=== PATIENT | male | born 1960 | race Caucasian/White ===

== ENCOUNTER 2019-10-27 10:16 | Observation (INO) | payer BC ==
[2019-10-27 11:24] LABS: BASO % 0.7 % (0-2.0); EOS % 3.1 % (0-4.5); HEMATOCRIT 42.6 % (35.4-49); HEMOGLOBIN 14.8 GM/dL (11.7-16.9); LYMPH % 25.5 % (8-40); MCH 30.2 pg (25.7-33.7); MCHC 34.7 g/dl (32.0-35.9); MEAN CELL VOLUME 87.3 fl (80-96); MEAN PLT VOLUME 8.5 fl (7.5-11.1); MONO % 9.4 % (3.8-10.2); NEUT % 61.3 % (42.8-82.8); PLATELET COUNT 153 K/MM3 (134-434); RBC 4.88 M/mm3 (4.00-5.60); RDW 13.5 % (11.9-15.9)
[2019-10-27 11:31] LABS: INR 1.02 (0.83-1.09)
[2019-10-27 11:33] LABS: ACTIVATED PTT 32.1 SECONDS (25.2-36.5)
[2019-10-27 11:58] LABS: ALBUMIN 3.8 g/dl (3.4-5.0); ALK PHOS 60 U/L (45-117); ANION GAP 7 MMOL/L (8-16); BILIRUBIN,TOTAL 0.9 mg/dL (0.2-1); BLOOD UREA NITROGEN 28.6 mg/dL (7-18); CALCIUM 9.4 mg/dL (8.5-10.1); CHLORIDE 106 mmol/L (98-107); CO2 27 mmol/L (21-32); CREATININE 1.5 mg/dL (0.55-1.3); GLUCOSE,RANDOM 213 mg/dL (74-106); POTASSIUM 4.1 mmol/L (3.5-5.1); SGOT/AST 21 U/L (15-37); SGPT/ALT 34 U/L (13-61); SODIUM 140 mmol/L (136-145); TOT PROT 6.8 g/dl (6.4-8.2)
--- NOTE | 2019-10-27 12:19 | PDOC ---
History of Present Illness - General Chief Complaint: PICC Line Insertion Stated Complaint: SENT BY PCP / ADMIT Time Seen by Provider: 10/27/19 11:18 History Source: Patient Exam Limitations: No Limitations - History of Present Illness Initial Comments: 59 yo male pmh of DM and current treatment for osteomyelitis of the right third toe presents to the ED for PICC line placement for outpatient antibiotics as per ID. Pt denies F/C/N/V, change in bowel or bladder habits, CP, SOB, abdominal pain, calf swelling/tenderness. Pt denies local change in pain, swelling, redness or drainage from the right third toe. Pt states that he was told by Podiatry not to remove current dressing placement. Will wait for ID evaluation and input before removing dressing. Past History - Medical History Allergies/Adverse Reactions: Allergies Allergy/AdvReac Type Severity Reaction Status Date / Time No Known Allergies Allergy Verified 10/27/19 10:31 Home Medications: Ambulatory Orders Atorvastatin Ca [Lipitor] 20 mg PO HS 10/16/19 Chlorthalidone 25 mg PO Q2D 10/16/19 Glipizide [Glucotrol -] 15 mg PO DAILY 10/16/19 Metformin HCl [Glucophage] 500 mg PO BID 10/16/19 Metoprolol Succinate [Toprol Xl] 200 mg PO DAILY 10/16/19 Omeprazole 20 mg PO Q2D 10/16/19 Telmisartan [Micardis] 80 mg PO DAILY 10/16/19 Ceftriaxone [Rocephin -] 1 gm IVPB DAILY vial 10/28/19 Glipizide [Glucotrol -] 15 mg PO DAILY@0700 tablet 10/28/19 Cardiac Disorders: Yes (Cardiomyopathy (HOCM)) COPD: No Diabetes: Yes HTN: Yes Hypercholesterolemia: Yes - Surgical History Orthopedic Surgery: Yes (Fracture ankle repair 10 yrs ago) - Immunization History Immunization Up to Date: Yes - Psycho-Social/Smoking History Smoking History: Never smoked Have you smoked in the past 12 months: No - Substance Abuse Hx (Audit-C & DAST Scrn) How often the patient has a drink containing alcohol: Never Score: In Men: 4 or > Positive; In Women: 3 or > Positive: 0 Screen Result (Pos requires Nsg. Audit-10AR): Negative In the last yr the pt used illegal drug/Rx for NonMed reason: No Score: Yes response is considered Positive: 0 Screen Result (Positive result requires Nsg. DAST-10): Negative Review of Systems - Review of Systems Constitutional: Yes: See HPI Respiratory: Yes: See HPI Cardiac (ROS): Yes: See HPI ABD/GI: Yes: See HPI : Yes: See HPI Musculoskeletal: Yes: See HPI Integumentary: Yes: See HPI Neurological: Yes: See HPI *Physical Exam - Vital Signs Last Vital Signs Temp Pulse Resp BP Pulse Ox 98.9 F 57 L 18 156/65 100 10/27/19 10:31 10/27/19 10:31 10/27/19 10:31 10/27/19 10:31 10/27/19 10:31 - Physical Exam General Appearance: Yes: Nourished, Appropriately Dressed. No: Apparent Distress HEENT: positive: EOMI Neck: positive: Supple Respiratory/Chest: positive: Lungs Clear, Normal Breath Sounds. negative: Acce ssory Muscle Use, Rapid RR, Crackles, Rales, Rhonchi, Stridor, Wheezing Cardiovascular: positive: Regular Rhythm, Regular Rate, S1, S2. negative: Edema, JVD, Murmur Vascular Pulses: Dorsalis-Pedis (R): 4+, Doralis-Pedis (L): 4+ Gastrointestinal/Abdominal: positive: Flat, Soft. negative: Pulsatile Mass, Distended, Guarding, Rebound, Tenderness Musculoskeletal: negative: CVA Tenderness Extremity: positive: Other (dressing in place over right foot, as per Podiatry and ID, do not remove and and admit for PICC line/antibiotics) Integumentary: positive: Dry, Warm. negative: Erythema, Swelling Neurologic: positive: Fully Oriented, Alert, Normal Mood/Affect, Normal Response, Motor Strength 5/5 ED Treatment Course - LABORATORY CBC & Chemistry Diagram: 10/28/19 07:15 10/28/19 07:15 - ADDITIONAL ORDERS Additional order review: Laboratory Results 10/27/19 10/27/19 11:10 11:10 PT with INR 12.00 INR 1.02 PTT (Actin FS) 32.1 Sodium 140 Potassium 4.1 Chloride 106 Carbon Dioxide 27 Anion Gap 7 L BUN 28.6 H Creatinine 1.5 H Est GFR (CKD-EPI)AfAm 57.82 Est GFR (CKD-EPI)NonAf 49.88 Random Glucose 213 H Calcium 9.4 Total Bilirubin 0.9 AST 21 ALT 34 Alkaline Phosphatase 60 C-Reactive Protein < 0.3 Total Protein 6.8 Albumin 3.8 10/27/19 11:10 RBC 4.88 MCV 87.3 MCHC 34.7 RDW 13.5 MPV 8.5 Neutrophils % 61.3 Lymphocytes % 25.5 Monocytes % 9.4 Eosinophils % 3.1 Basophils % 0.7 - RADIOLOGY Radiology Studies Ordered: Category Date Time Status PICC LINE INSERTION [RADS] Urgent Radiology 10/27/19 12:16 Ordered Medical Decision Making - Medical Decision Making 10/27/19 12:39 59 yo male pmh of DM and current treatment for osteomyelitis of the right third toe presents to the ED for PICC line placement for outpatient antibiotics as per ID. Pt denies F/C/N/V, change in bowel or bladder habits, CP, SOB, abdominal pain, calf swelling/tenderness. Pt denies local change in pain, swelling, redness or drainage from the right third toe. Pt states that he was told by Podiatry not to remove current dressing placement. Will wait for ID evaluation and input before removing dressing. Failed outpatient antibiotics Discussed case with Dr. Lockwood, states pt to be admitted for PICC line placement and antibiotics. Dr. Lockwood states Ceftriaxone 2 G once in the ED and will continue following Admission labs done and patient is accepted for inpatient PICC line placement and antibiotics Discharge - Discharge Information Problems reviewed: Yes Clinical Impression/Diagnosis: Osteomyelitis Qualifiers: Osteomyelitis type: unspecified type Osteomyelitis location: foot Laterality: r ight Qualified Code(s): M86.9 - Osteomyelitis, unspecified Condition: Good Disposition: HOME - Admission Yes - Follow up/Referral - Patient Discharge Instructions - Post Discharge Activity
--- NOTE | 2019-10-27 12:22 | PDOC ---
Attending Attestation - Resident Resident Name: Swapnil Keys - ED Attending Attestation I have performed the following: I have examined & evaluated the patient, The case was reviewed & discussed with the resident, I agree w/resident's findings & plan - HPI HPI: 10/27/19 12:19 59-year-old male with history of diabetes complicated by neuropathy presents with right third toe osteomyelitis. Patient had initial injury about 5 to 6 weeks ago with abrasion to the toe, progressed to ulceration about 3 weeks ago, treated now with 2 courses of amoxicillin (Augmentin?) With improvement of the redness and swelling, referred to wound clinic and now had MRI last week showing osteomyelitis. Referred for IV antibiotics and PICC line placement. No pain, states redness has slightly decreased after oral antibiotics, denies any fevers or chills. - Physicial Exam PE: 10/27/19 12:20 Afebrile, vital signs stable Well-appearing standing by stretcher, boot in place with right foot dressed Palpable pulses distally, no foot or leg redness or swelling. Patient declined removal of dressing at this time. - Medical Decision Making 10/27/19 12:20 59-year-old diabetic male with diagnosed osteomyelitis of right third toe, sent for PICC line placement and IV antibiotics. Labs sent and within normal limits, creatinine 1.5 We will discuss antibiotic initiation with Dr. Lockwood and initiate PICC line placement Admit Heart Score/ECG Review #1 ECG reviewed & interpreted by me at: 12:04 General ECG Interpretation: Sinus Rhythm, Normal Rate (55), Normal Intervals (qtc 388), No acute ischemic changes Discharge - Discharge Information Problems reviewed: Yes Clinical Impression/Diagnosis: Osteomyelitis Qualifiers: Osteomyelitis type: unspecified type Osteomyelitis location: foot Laterality: right Qualified Code(s): M86.9 - Osteomyelitis, unspecified Condition: Stable - Follow up/Referral Referrals: ON STAFF,NOT [Primary Care Provider] - - Patient Discharge Instructions - Post Discharge Activity
[2019-10-27] MEDS ORDERED: CEFTRIAXONE 2 GM-D5W BAG 2 GM/50 ML BAG IVPB ONE (12:43)
[2019-10-27] MEDS ORDERED: CEFTRIAXONE 2 GM/100 ML BAG IVPB ONE (12:50)
[2019-10-27 13:10] LABS: ERYTHROCYTE SEDIMENTATION RATE 5 mm/hr (0-20)
--- NOTE | 2019-10-27 13:55 | CON.ID ---
Consult Consult Specialty:: infectious diseases Referred by:: - Smoking History Smoking history: Never smoked Have you smoked in the past 12 months: No Home Medications - Allergies Allergies/Adverse Reactions: Allergies Allergy/AdvReac Type Severity Reaction Status Date / Time No Known Allergies Allergy Verified 10/27/19 10:31 - Home Medications Home Medications: Ambulatory Orders Atorvastatin Ca [Lipitor] 20 mg PO HS 10/16/19 Chlorthalidone 25 mg PO Q2D 10/16/19 Glipizide [Glucotrol -] 15 mg PO DAILY 10/16/19 Metformin HCl [Glucophage] 500 mg PO BID 10/16/19 Metoprolol Succinate [Toprol Xl] 200 mg PO DAILY 10/16/19 Omeprazole 20 mg PO Q2D 10/16/19 Telmisartan [Micardis] 80 mg PO DAILY 10/16/19 Physical Exam Vital Signs: Vital Signs Temperature 98.9 F 10/27/19 10:31 Pulse Rate 57 L 10/27/19 10:31 Respiratory Rate 18 10/27/19 13:29 Blood Pressure 156/65 10/27/19 10:31 O2 Sat by Pulse Oximetry (%) 100 10/27/19 13:29 Labs: CBC, BMP 10/27/19 11:10 10/27/19 11:10
--- NOTE | 2019-10-27 17:48 | EKG ---
Test Reason : Blood Pressure : / mmHG Vent. Rate : 055 BPM Atrial Rate : 055 BPM P-R Int : 134 ms QRS Dur : 096 ms QT Int : 406 ms P-R-T Axes : 020 039 042 degrees QTc Int : 388 ms SINUS BRADYCARDIA OTHERWISE NORMAL ECG NO PREVIOUS ECGS AVAILABLE Confirmed by TRAVIS CARRERO MD ([id number]) on 10/27/2019 5:48:31 PM Referred By: Confirmed By:TRAVIS CARRERO MD
--- NOTE | 2019-10-27 23:23 | HP ---
Admitting History and Physical - Admission History of Present Illness: Pt is a 59 y/o male with PMH significant for HTN, GERD, HLD and diabetes complicated by neuropathy. Pt now presents to ER with right third toe osteo myelitis. Patient had initial injury about 5 to 6 weeks ago(cut foot in a swimming pool) with abrasion to the toe, progressed to ulceration about 3 weeks ago, treated now with 2 courses of antibiotic with some improvement of the redness and swelling, referred to wound clinic and now had MRI last week showing osteomyelitis. Referred for IV antibiotics and PICC line placement. - Past Medical History Cardiovascular: Yes: HTN, Hyperlipdemia Gastrointestinal: Yes: GERD Endocrine: Yes: Diabetes Mellitus - Smoking History Smoking history: Never smoked Have you smoked in the past 12 months: No Home Medications - Allergies Allergies/Adverse Reactions: Allergies Allergy/AdvReac Type Severity Reaction Status Date / Time No Known Allergies Allergy Verified 10/27/19 10:31 - Home Medications Home Medications: Ambulatory Orders Atorvastatin Ca [Lipitor] 20 mg PO HS 10/16/19 Chlorthalidone 25 mg PO Q2D 10/16/19 Glipizide [Glucotrol -] 15 mg PO DAILY 10/16/19 Metformin HCl [Glucophage] 500 mg PO BID 10/16/19 Metoprolol Succinate [Toprol Xl] 200 mg PO DAILY 10/16/19 Omeprazole 20 mg PO Q2D 10/16/19 Telmisartan [Micardis] 80 mg PO DAILY 10/16/19 Family Medical History Family History: Unremarkable Review of Systems - Review of Systems Constitutional: reports: No Symptoms Eyes: reports: No Symptoms HENT: reports: No Symptoms Neck: reports: No Symptoms Cardiovascular: reports: No Symptoms Respiratory: reports: No Symptoms Gastrointestinal: reports: No Symptoms Genitourinary: reports: No Symptoms Physical Examination Vital Signs: Vital Signs Temperature 98.9 F 10/27/19 10:31 Pulse Rate 72 10/27/19 15:54 Respiratory Rate 18 10/27/19 13:29 Blood Pressure 146/97 10/27/19 15:54 O2 Sat by Pulse Oximetry (%) 97 10/27/19 15:54 Constitutional: Yes: Well Nourished Eyes: Yes: WNL HENT: Yes: WNL Neck: Yes: WNL, Supple Cardiovascular: Yes: WNL, Regular Rate and Rhythm Respiratory: Yes: WNL, Regular, CTA Bilaterally Gastrointestinal: Yes: WNL, Normal Bowel Sounds, Soft Extremities: Yes: Other (Rt 3rd toe in dressing wc is dry) Edema: No Neurological: Yes: WNL, Alert, Oriented ...Motor Strength: WNL Labs: CBC, BMP 10/27/19 11:10 10/27/19 11:10 Problem List - Problems (1) Osteomyelitis Assessment/Plan: Cont IV antibxs ID/podiatry consult Will need PIC line Code(s): M86.9 - OSTEOMYELITIS, UNSPECIFIED Qualifiers: Osteomyelitis type: unspecified type Osteomyelitis location: foot Laterality: right Qualified Code(s): M86.9 - Osteomyelitis, unspecified (2) Diabetes Assessment/Plan: Cont glipizide/metformin Cont sliding scale w/ coverage Check HgA1c Code(s): E11.9 - TYPE 2 DIABETES MELLITUS WITHOUT COMPLICATIONS (3) ARF (acute renal failure) Assessment/Plan: Monitor BUN/creatinine Code(s): N17.9 - ACUTE KIDNEY FAILURE, UNSPECIFIED (4) HTN (hypertension) Assessment/Plan: BP stable Cont metoprolol Code(s): I10 - ESSENTIAL (PRIMARY) HYPERTENSION (5) HLD (hyperlipidemia) Assessment/Plan: Cont lipitor Code(s): E78.5 - HYPERLIPIDEMIA, UNSPECIFIED (6) GERD (gastroesophageal reflux disease) Assessment/Plan: Protonix Code(s): K21.9 - GASTRO-ESOPHAGEAL REFLUX DISEASE WITHOUT ESOPHAGITIS
[2019-10-28] MEDS: metFORMIN HCL 500 MG TABLET (FP) PO SCH ×2 (00:16→06:43)
[2019-10-28 03:44] VITALS: BMI 33.4
[2019-10-28] MEDS: INSULIN SLIDING SCALE (NOVOLOG) 1 VIAL SQ SCH ×2 (06:41→12:16)
[2019-10-28] MEDS ORDERED: GLIPIZIDE PO SCH (07:00)
[2019-10-28] MEDS ORDERED: PT OWN MED DRAWER 7, Y5N ONE (07:36)
[2019-10-28 08:20] LABS: BASO % 0.7 % (0-2.0); EOS % 2.9 % (0-4.5); HEMATOCRIT 43.4 % (35.4-49); HEMOGLOBIN 14.9 GM/dL (11.7-16.9); LYMPH % 31.7 % (8-40); MCH 30.1 pg (25.7-33.7); MCHC 34.3 g/dl (32.0-35.9); MEAN CELL VOLUME 87.8 fl (80-96); MEAN PLT VOLUME 8.6 fl (7.5-11.1); NEUT % 54.7 % (42.8-82.8); PLATELET COUNT 155 K/MM3 (134-434); RBC 4.94 M/mm3 (4.00-5.60); RDW 13.3 % (11.9-15.9); WHITE BLOOD COUNT 9.4 K/mm3 (4.0-10.0)
[2019-10-28 08:35] LABS: ALBUMIN 3.7 g/dl (3.4-5.0); BILIRUBIN,TOTAL 1.1 mg/dL (0.2-1); BLOOD UREA NITROGEN 20.4 mg/dL (7-18); CALCIUM 9.5 mg/dL (8.5-10.1); CREATININE 1.2 mg/dL (0.55-1.3); POTASSIUM 3.7 mmol/L (3.5-5.1); TOT PROT 6.5 g/dl (6.4-8.2)
[2019-10-28] MEDS ORDERED: CEFTRIAXONE 1 GM in DEXTROSE 5%-WATER - 50 ML IVPB SCH (10:00)
[2019-10-28] MEDS ORDERED: HEPARIN NA (PORCINE) 5,000 UNITS/ML 1ML VIAL SQ SCH (10:00)
[2019-10-28] MEDS ORDERED: glipiZIDE 10 MG TABLET (FP) PO SCH (10:00)
[2019-10-28] MEDS ORDERED: cefTRIAXone SODIUM 1 GM VIAL ONE (10:10)
[2019-10-28] MEDS ORDERED: DEXTROSE 5%-WATER - 50 ML IVPB ONE (10:10)
--- NOTE | 2019-10-28 13:04 | PN ---
Progress Note, Physician History of Present Illness: stable no new issues wound looks good - Current Medication List Current Medications: Active Medications Atorvastatin Calcium (Lipitor -) 20 mg PO HS [facility] Chlorthalidone (Hygroton -) 25 mg PO Q2D [facility] Glipizide 10 mg/ Glipizide 5 (mg) 15 mg PO DAILY@0700 [facility] Last Admin: 10/28/19 06:44 Dose: 15 mg Documented by: Heparin Sodium (Porcine) (Heparin -) 5,000 unit SQ BID [facility] Last Admin: 10/28/19 10:33 Dose: Not Given Documented by: Ceftriaxone Sodium 1 gm/ (Dextrose) 50 mls @ 200 mls/hr IVPB DAILY [facility]; Protocol Last Admin: 10/28/19 10:34 Dose: 200 mls/hr Documented by: Insulin Aspart (Novolog Vial Sliding Scale -) 1 vial SQ ACHS [facility]; Protocol Last Admin: 10/28/19 12:16 Dose: Not Given Documented by: Metformin HCl (Glucophage -) 500 mg PO BIDAC [facility] Last Admin: 10/28/19 06:43 Dose: 500 mg Documented by: Metoprolol Succinate (Toprol Xl -) 200 mg PO DAILY [facility] Last Admin: 10/28/19 10:34 Dose: 200 mg Documented by: - Objective Vital Signs: Vital Signs Temperature 97.6 F 10/28/19 06:00 Pulse Rate 52 L 10/28/19 06:00 Respiratory Rate 16 10/28/19 06:00 Blood Pressure 136/90 10/28/19 06:00 O2 Sat by Pulse Oximetry (%) 100 10/28/19 06:00 Constitutional: Yes: No Distress, Calm Cardiovascular: Yes: S1, S2 Respiratory: Yes: Regular, CTA Bilaterally Gastrointestinal: Yes: Normal Bowel Sounds, Soft Musculoskeletal: Yes: WNL Extremities: Yes: Other Wound/Incision: Yes: Dressing Dry and Intact Neurological: Yes: Alert, Oriented Psychiatric: Yes: Alert, Oriented Labs: CBC, BMP 10/28/19 07:15 10/28/19 07:15 INR, PTT INR 1.02 (0.83-1.09) 10/27/19 11:10
[2019-10-28 15:40] VITALS: BP 138/88; PULSE 63; TEMP 98.7
[2019-10-28] MEDS ORDERED: ATORVASTATIN CA 20 MG TABLET (FP) PO SCH (22:00)
[2019-10-29] MEDS ORDERED: CHLORTHALIDONE 25 MG TABLET PO SCH (10:00)
--- NOTE | 2019-11-20 22:12 | DS ---
Physical Examination Vital Signs: Vital Signs Temperature 98.7 F 10/28/19 15:37 Pulse Rate 63 10/28/19 15:37 Respiratory Rate 20 10/28/19 15:37 Blood Pressure 138/88 10/28/19 15:37 O2 Sat by Pulse Oximetry (%) 97 10/28/19 15:37 Labs: CBC, BMP 10/28/19 07:15 10/28/19 07:15 Discharge Summary Problems reviewed: Yes Reason For Visit: OSTEOMYELITIS Osteomyelitis Diabetes HTN HLD Neuropathy Hospital Course: Pt is a 59 y/o male with PMH significant for HTN, GERD, HLD and diabetes complicated by neuropathy. Pt now presents to ER with right third toe osteomyelitis. Patient had initial injury about 5 to 6 weeks ago(cut foot in a swimming pool) with abrasion to the toe, progressed to ulceration about 3 weeks ago, treated now with 2 courses of antibiotic with some improvement of the redness and swelling, referred to wound clinic and now had MRI last week showing osteomyelitis. Pt was seen by ID and started on IV antibxs. Pt subsequently got PICC line and was discharged home on IV antibxs and to follow up with wound care. Condition: Good - Instructions Diet, Activity, Other Instructions: 2 gram sodium and diabetic diet Follow up with Dr Rosas and Dr Roro Roberts [phone] Referrals: ON STAFF,NOT [Primary Care Provider] - Disposition: HOME - Home Medications Comprehensive Discharge Medication List: Ambulatory Orders Atorvastatin Ca [Lipitor] 20 mg PO HS 10/16/19 Chlorthalidone 25 mg PO Q2D 10/16/19 Metformin HCl [Glucophage] 500 mg PO BID 10/16/19 Metoprolol Succinate [Toprol Xl] 200 mg PO DAILY 10/16/19 Omeprazole 20 mg PO Q2D 10/16/19 Telmisartan [Micardis] 80 mg PO DAILY 10/16/19 Ceftriaxone [Rocephin -] 1 gm IVPB DAILY vial 10/28/19 Glipizide [Glucotrol -] 15 mg PO DAILY@0700 tablet 10/28/19
== END 2019-10-28 17:30 | disposition home or self-care (01) ==
LOC: SUPCPDRO 10:16 → JER 10:16 → UNDOADMOB 13:04 → JERBED 13:04 → J5S 20:44 → OBSVTOIN 23:25 → INTOOBSV 23:25 → JERBED 10-28 13:47 → J5S 10-28 13:47
PROVIDERS: ADMIT Internal Medicine; ATTEND Internal Medicine
PROC: 3E03329 Introduction of Other Anti-infective into Peripheral Vein, Percutaneous Approach (ICD-10-PCS; principal; 2019-10-28)
PROC: 3E043KZ Introduction of Other Diagnostic Substance into Central Vein, Percutaneous Approach (ICD-10-PCS; 2019-10-28)
PROC: 02HV33Z Insertion of Infusion Device into Superior Vena Cava, Percutaneous Approach (ICD-10-PCS; 2019-10-28)
PROC: B548ZZA Ultrasonography of Superior Vena Cava, Guidance (ICD-10-PCS; 2019-10-28)
DX: M86.9 Osteomyelitis, unspecified (principal); E66.01 Morbid (severe) obesity due to excess calories; Z68.33 Body mass index [BMI] 33.0-33.9, adult; I10 Essential (primary) hypertension; E78.00 Pure hypercholesterolemia, unspecified; I42.9 Cardiomyopathy, unspecified; K21.9 Gastro-esophageal reflux disease without esophagitis; E11.40 Type 2 diabetes mellitus with diabetic neuropathy, unspecified; Z79.84 Long term (current) use of oral hypoglycemic drugs; N17.9 Acute kidney failure, unspecified
CPT/HCPCS: 36415; 36558; 77001-TC-FY; 80053; 82962; 83036; 85025; 85610; 85651; 85730; 86140; 86850; 86900; 86901; 93005; 93010; 99285-25; C1751; G0378; U0003

== ENCOUNTER 2019-10-31 11:12 | Day surgery (SDC) | payer BC ==
[2019-10-31] MEDS ORDERED: CEFTRIAXONE 2 GM in DEXTROSE 5%-WATER 100 ML IVPB ONE (11:45)
[2019-10-31] MEDS ORDERED: DEXTROSE 5%-WATER 100 ML IVPB ONE (11:48)
[2019-10-31 13:42] VITALS: BP 147/78; PULSE 65; TEMP 98.1
== END 2019-10-31 16:07 | disposition home or self-care (01) ==
LOC: JINFUSION 11:12 → J7W 11:12 → JINFUSION 16:07
PROVIDERS: ATTEND Internal Medicine Infectious Disease
DX: E11.69 Type 2 diabetes mellitus with other specified complication (principal); M86.9 Osteomyelitis, unspecified; Z79.84 Long term (current) use of oral hypoglycemic drugs; I10 Essential (primary) hypertension; E78.5 Hyperlipidemia, unspecified; N17.9 Acute kidney failure, unspecified
CPT/HCPCS: 96365

== ENCOUNTER 2019-11-01 10:44 | Day surgery (SDC) | payer BC ==
[~2019-11-01 10:44] MED LIST: CEFTRIAXONE 2 GM in DEXTROSE 5%-WATER 100 ML IVPB ONE
[2019-11-01] MEDS ORDERED: DEXTROSE 5%-WATER 100 ML IVPB ONE (11:17)
[2019-11-01 12:21] VITALS: BP 138/88; PULSE 52; TEMP 98.3
== END 2019-11-01 12:22 | disposition home or self-care (01) ==
LOC: JINFUSION 10:44 → J7W 10:45 → JINFUSION 12:22
PROVIDERS: ATTEND Internal Medicine Infectious Disease
DX: E11.69 Type 2 diabetes mellitus with other specified complication (principal); M86.9 Osteomyelitis, unspecified; Z79.84 Long term (current) use of oral hypoglycemic drugs; I10 Essential (primary) hypertension; E78.5 Hyperlipidemia, unspecified; N17.9 Acute kidney failure, unspecified
CPT/HCPCS: 96365

== ENCOUNTER 2019-11-02 09:27 | Day surgery (SDC) | payer BC ==
[2019-11-02] MEDS ORDERED: CEFTRIAXONE 2 GM in DEXTROSE 5%-WATER 100 ML IVPB ONE (09:45)
[2019-11-02] MEDS ORDERED: DEXTROSE 5%-WATER 100 ML IVPB ONE (09:49)
[2019-11-02 10:18] VITALS: TEMP 98.1
[2019-11-02 18:24] VITALS: BP 126/75; PULSE 70
== END 2019-11-02 11:30 | disposition home or self-care (01) ==
LOC: JINFUSION 09:27 → J7W 09:28 → JINFUSION 11:30
PROVIDERS: ATTEND Internal Medicine Infectious Disease
DX: E11.69 Type 2 diabetes mellitus with other specified complication (principal); M86.9 Osteomyelitis, unspecified; Z79.84 Long term (current) use of oral hypoglycemic drugs; I10 Essential (primary) hypertension; E78.5 Hyperlipidemia, unspecified; N17.9 Acute kidney failure, unspecified
CPT/HCPCS: 96365

== ENCOUNTER 2019-11-03 10:46 | Day surgery (SDC) | payer BC ==
[2019-11-03] MEDS ORDERED: CEFTRIAXONE 2 GM in DEXTROSE 5%-WATER 100 ML IVPB ONE (11:00)
[2019-11-03] MEDS ORDERED: DEXTROSE 5%-WATER 100 ML IVPB ONE (11:16)
[2019-11-03 11:28] VITALS: BP 138/84; PULSE 55; TEMP 98.9
== END 2019-11-03 12:13 | disposition home or self-care (01) ==
LOC: JINFUSION 10:46 → J7W 10:47 → JINFUSION 12:13
PROVIDERS: ATTEND Internal Medicine Infectious Disease
DX: E11.69 Type 2 diabetes mellitus with other specified complication (principal); M86.9 Osteomyelitis, unspecified; Z79.84 Long term (current) use of oral hypoglycemic drugs; I10 Essential (primary) hypertension; E78.5 Hyperlipidemia, unspecified; N17.9 Acute kidney failure, unspecified
CPT/HCPCS: 96365

== ENCOUNTER 2019-11-04 10:29 | Day surgery (SDC) | payer BC ==
[2019-11-04] MEDS ORDERED: CEFTRIAXONE 2 GM in DEXTROSE 5%-WATER 100 ML IVPB ONE (10:45)
[2019-11-04] MEDS ORDERED: DEXTROSE 5%-WATER 100 ML IVPB ONE (11:02)
[2019-11-04 11:14] VITALS: BP 137/91; PULSE 60; TEMP 98.3
[2019-11-04 11:35] LABS: HEMATOCRIT 43.7 % (35.4-49); MCH 30.2 pg (25.7-33.7); MCHC 34.2 g/dl (32.0-35.9); MEAN CELL VOLUME 88.3 fl (80-96); MEAN PLT VOLUME 8.7 fl (7.5-11.1); PLATELET COUNT 156 K/MM3 (134-434); RBC 4.95 M/mm3 (4.00-5.60); RDW 13.6 % (11.9-15.9); WHITE BLOOD COUNT 8.9 K/mm3 (4.0-10.0)
[2019-11-04 11:54] LABS: ANION GAP 6 MMOL/L (8-16); BLOOD UREA NITROGEN 28.4 mg/dL (7-18); CALCIUM 9.1 mg/dL (8.5-10.1); CHLORIDE 109 mmol/L (98-107); CO2 26 mmol/L (21-32); CREATININE 1.4 mg/dL (0.55-1.3); GLUCOSE,RANDOM 170 mg/dL (74-106); POTASSIUM 4.2 mmol/L (3.5-5.1); SODIUM 141 mmol/L (136-145)
[2019-11-04 13:50] LABS: ERYTHROCYTE SEDIMENTATION RATE 5 mm/hr (0-20)
== END 2019-11-04 13:54 | disposition home or self-care (01) ==
LOC: JINFUSION 10:29 → J7W 10:30 → JINFUSION 13:54
PROVIDERS: ATTEND Internal Medicine Infectious Disease
PROC: 3E033GC Introduction of Other Therapeutic Substance into Peripheral Vein, Percutaneous Approach (ICD-10-PCS; principal; 2019-11-04)
DX: E11.69 Type 2 diabetes mellitus with other specified complication (principal); M86.9 Osteomyelitis, unspecified; Z79.84 Long term (current) use of oral hypoglycemic drugs; I10 Essential (primary) hypertension; N17.9 Acute kidney failure, unspecified
CPT/HCPCS: 36415; 80048; 85027; 85651; 86140; 96365

== ENCOUNTER 2019-11-05 07:46 | Day surgery (SDC) | payer BC ==
[2019-11-05] MEDS ORDERED: CEFTRIAXONE 2 GM in DEXTROSE 5%-WATER 100 ML IVPB ONE (09:15)
[2019-11-05] MEDS ORDERED: DEXTROSE 5%-WATER 100 ML IVPB ONE (10:51)
[2019-11-05 16:35] VITALS: BP 150/86; PULSE 49; TEMP 98.3
== END 2019-11-05 11:45 | disposition home or self-care (01) ==
LOC: J7W 07:46 → JINFUSION 07:46
PROVIDERS: ATTEND Internal Medicine Infectious Disease
DX: E11.69 Type 2 diabetes mellitus with other specified complication (principal); M86.9 Osteomyelitis, unspecified; Z79.84 Long term (current) use of oral hypoglycemic drugs; I10 Essential (primary) hypertension
CPT/HCPCS: 96365

== ENCOUNTER 2019-11-06 06:22 | Day surgery (SDC) | payer BC ==
[2019-11-06] MEDS ORDERED: CEFTRIAXONE 2 GM in DEXTROSE 5%-WATER 100 ML IVPB ONE (10:30)
[2019-11-06] MEDS ORDERED: DEXTROSE 5%-WATER 100 ML IVPB ONE (10:56)
[2019-11-06 12:12] VITALS: BP 149/51; PULSE 54; TEMP 98.9
== END 2019-11-06 12:13 | disposition home or self-care (01) ==
LOC: JINFUSION 06:22 → J7W 09:59 → JINFUSION 12:13
PROVIDERS: ATTEND Internal Medicine Infectious Disease
DX: E11.69 Type 2 diabetes mellitus with other specified complication (principal); M86.9 Osteomyelitis, unspecified; Z79.84 Long term (current) use of oral hypoglycemic drugs; I10 Essential (primary) hypertension; E11.621 Type 2 diabetes mellitus with foot ulcer; L97.512 Non-pressure chronic ulcer of other part of right foot with fat layer exposed; E78.00 Pure hypercholesterolemia, unspecified
CPT/HCPCS: 96365; 97597

== ENCOUNTER 2019-11-07 06:38 | Day surgery (SDC) | payer BC ==
[2019-11-07] MEDS ORDERED: CEFTRIAXONE 2 GM in DEXTROSE 5%-WATER 100 ML IVPB ONE (11:00)
[2019-11-07] MEDS ORDERED: DEXTROSE 5%-WATER 100 ML IVPB ONE (11:09)
[2019-11-07 11:21] VITALS: BP 138/91; PULSE 56; TEMP 99
== END 2019-11-07 12:15 | disposition home or self-care (01) ==
LOC: JINFUSION 06:38 → J7W 10:53 → JINFUSION 12:15
PROVIDERS: ATTEND Internal Medicine Infectious Disease
DX: E11.69 Type 2 diabetes mellitus with other specified complication (principal); M86.9 Osteomyelitis, unspecified; Z79.84 Long term (current) use of oral hypoglycemic drugs; I10 Essential (primary) hypertension
CPT/HCPCS: 96365

== ENCOUNTER 2019-11-08 07:14 | Day surgery (SDC) | payer BC ==
[2019-11-08] MEDS ORDERED: CEFTRIAXONE 2 GM in DEXTROSE 5%-WATER 100 ML IVPB ONE (13:00)
[2019-11-08] MEDS ORDERED: DEXTROSE 5%-WATER 100 ML IVPB ONE (13:03)
[2019-11-08 13:12] VITALS: BP 145/88; PULSE 57; TEMP 97.6
== END 2019-11-08 13:55 | disposition home or self-care (01) ==
LOC: JINFUSION 07:14 → J7W 12:46 → JINFUSION 13:55
PROVIDERS: ATTEND Internal Medicine Infectious Disease
DX: E11.69 Type 2 diabetes mellitus with other specified complication (principal); M86.9 Osteomyelitis, unspecified; Z79.84 Long term (current) use of oral hypoglycemic drugs; I10 Essential (primary) hypertension
CPT/HCPCS: 96365

== ENCOUNTER 2019-11-09 11:55 | Day surgery (SDC) | payer BC ==
[2019-11-09] MEDS ORDERED: cefTRIAXone SODIUM 1 GM VIAL ONE (12:28)
[2019-11-09] MEDS ORDERED: DEXTROSE 5%-WATER 100 ML IVPB ONE (12:28)
[2019-11-09] MEDS ORDERED: CEFTRIAXONE 1 GM in DEXTROSE 5%-WATER 100 ML IVPB ONE (12:30)
[2019-11-09 12:43] VITALS: BP 148/90; PULSE 53; TEMP 98.3
== END 2019-11-09 13:28 | disposition home or self-care (01) ==
LOC: JINFUSION 11:55 → J7W 11:55 → JINFUSION 13:28
PROVIDERS: ATTEND Internal Medicine Infectious Disease
DX: E11.69 Type 2 diabetes mellitus with other specified complication (principal); M86.9 Osteomyelitis, unspecified; Z79.84 Long term (current) use of oral hypoglycemic drugs; I10 Essential (primary) hypertension
CPT/HCPCS: 96365

== ENCOUNTER 2019-11-10 05:58 | Day surgery (SDC) | payer BC ==
[2019-11-10] MEDS ORDERED: DEXTROSE 5%-WATER 100 ML IVPB ONE (10:58)
[2019-11-10] MEDS ORDERED: CEFTRIAXONE 2 GM in DEXTROSE 5%-WATER 100 ML IVPB ONE (11:00)
[2019-11-10 11:06] VITALS: BP 145/89; PULSE 58; TEMP 97.9
== END 2019-11-10 11:40 | disposition home or self-care (01) ==
LOC: JINFUSION 05:58 → J7W 10:46 → JINFUSION 11:40
PROVIDERS: ATTEND Internal Medicine Infectious Disease
DX: E13.69 Other specified diabetes mellitus with other specified complication (principal); M86.8X7 Other osteomyelitis, ankle and foot; E13.22 Other specified diabetes mellitus with diabetic chronic kidney disease; I12.9 Hypertensive chronic kidney disease with stage 1 through stage 4 chronic kidney disease, or unspecified chronic kidney disease; N18.9 Chronic kidney disease, unspecified; N17.9 Acute kidney failure, unspecified; Z79.84 Long term (current) use of oral hypoglycemic drugs
CPT/HCPCS: 96365

== ENCOUNTER 2019-11-11 05:56 | Day surgery (SDC) | payer BC ==
--- OUTSIDE RECORDS SUMMARY | 2019-11-11 05:59 | XMS ---
:1960 Author [facility] Support Name Relationship Address Phone UE Unavailable Unavailable Unavailable [place] [address] GUILLERMO ROBERSON , Unavailable [place], [place] , Re-disclosure Warning The records that you are about to access may contain information from federally- assisted alcohol or drug abuse programs. If such information is present, then the following federally mandated warning applies: This information has been disclosed to you from records protected by federal confidentiality rules (42 CFR part 2). The federal rules prohibit you from making any further disclosure of this information unless further disclosure is expressly permitted by the written consent of the person to whom it pertains or as otherwise permitted by 42 CFR part 2. A general authorization for the release of medical or other information is NOT sufficient for this purpose. The Federal rules restrict any use of the information to criminally investigate or prosecute any alcohol or drug abuse patient.The records that you are about to access may contain highly sensitive health information, the redisclosure of which is protected by Article 27-F of the [facility] Public Health law. If you continue you may haveaccess to information: Regarding HIV / AIDS; Provided by facilities licensed or operated by the [facility] Office of Mental Health; or Provided by the [facility] Office for People With Developmental Disabilities. If such information is present, then the following [facility] mandated warning applies: This information has been disclosed to you from confidential records which are protected by state law. State law prohibits you from making any further disclosure of this information without the specific written consent of the person to whom it pertains, or as otherwise permitted by law. Any unauthorized further disclosure in violation of state law may result in a fine or alf sentence or both. A general authorization for the release of medical or other information is NOT sufficient authorization for further disclosure. Insurance Providers Payer name Policy type Policy ID Covered Covered green party's Policy P marissa / Coverage green party ID relationship to [employer] Inf ormation type zuniga BC EPO [id number] SP [id number] BC EPO [id number] SP [id number] BLUE CROSS 1 [id number] 225 AND BLUE 5 [facility] Results ID Date Data Source [id number] 10/27/2019 12:50:00 PM EDT [facility] Name Value Range Interpretation Description Data Sup porting Code Source(s) Document(s ) SARS [facility] coronavirus 2 RNA This lab was ordered by [facility] and reported by [facility]. Procedure
[2019-11-11] MEDS ORDERED: CEFTRIAXONE 2 GM in DEXTROSE 5%-WATER 100 ML IVPB ONE (11:30)
[2019-11-11] MEDS ORDERED: DEXTROSE 5%-WATER 100 ML IVPB ONE (11:39)
[2019-11-11 11:42] LABS: HEMATOCRIT 43.7 % (35.4-49); HEMOGLOBIN 15.4 GM/dL (11.7-16.9); MCH 31.4 pg (25.7-33.7); MCHC 35.2 g/dl (32.0-35.9); MEAN CELL VOLUME 89.1 fl (80-96); MEAN PLT VOLUME 8.7 fl (7.5-11.1); PLATELET COUNT 156 K/MM3 (134-434); RBC 4.91 M/mm3 (4.00-5.60); RDW 13.6 % (11.9-15.9); WHITE BLOOD COUNT 7.8 K/mm3 (4.0-10.0)
[2019-11-11 12:05] LABS: ANION GAP 6 MMOL/L (8-16); BLOOD UREA NITROGEN 31.4 mg/dL (7-18); CALCIUM 9.3 mg/dL (8.5-10.1); CHLORIDE 104 mmol/L (98-107); CO2 28 mmol/L (21-32); CREATININE 1.6 mg/dL (0.55-1.3); GLUCOSE,RANDOM 208 mg/dL (74-106); POTASSIUM 4.2 mmol/L (3.5-5.1); SODIUM 138 mmol/L (136-145)
[2019-11-11 12:25] LABS: ERYTHROCYTE SEDIMENTATION RATE 9 mm/hr (0-20)
[2019-11-11 12:27] VITALS: BP 144/77; PULSE 54; TEMP 98.4
== END 2019-11-11 12:28 | disposition home or self-care (01) ==
LOC: JINFUSION 05:56 → J7W 11:01 → JINFUSION 12:28
PROVIDERS: ATTEND Internal Medicine Infectious Disease
DX: E13.69 Other specified diabetes mellitus with other specified complication (principal); M86.8X7 Other osteomyelitis, ankle and foot; E13.22 Other specified diabetes mellitus with diabetic chronic kidney disease; I12.9 Hypertensive chronic kidney disease with stage 1 through stage 4 chronic kidney disease, or unspecified chronic kidney disease; N17.9 Acute kidney failure, unspecified; N18.9 Chronic kidney disease, unspecified; Z79.84 Long term (current) use of oral hypoglycemic drugs
CPT/HCPCS: 36415; 80048; 85027; 85651; 86140; 96365

== ENCOUNTER 2019-11-12 04:57 | Day surgery (SDC) | payer BC ==
--- OUTSIDE RECORDS SUMMARY | 2019-11-12 05:00 | XMS ---
:1960 Author Organization [facility] Support Name Relationship Address Phone UE Unavailable Unavailable [place] [address] GUILLERMO ROBERSON , Unavailable [place], [place] , Re-disclosure Warning The records that [...] is protected by Article 27-F of the [facility] Public Health law. If you continue you may haveaccess to information: Regarding HIV / AIDS; Provided by facilities licensed or operated by the [facility] Office of Mental Health; or Provided by the [facility] Office for People With Developmental Disabilities. If such information is present, then the following [facility] mandated warning applies: This information has [...] law may result in a fine or fci sentence or both. A general authorization for the release of medical or other information is NOT sufficient authorization for further disclosure. Insurance Providers Payer name Policy type Policy ID Covered Covered alliance party's Policy P marissa / Coverage alliance party ID relationship to [employer] Inf ormation type zuniga BC EPO [id number] SP [id number] BC EPO [id number] SP [id number] BLUE CROSS 1 [id number] [facility] Results ID Date Data Source [id number] 10/27/2019 12:50:00 PM EDT [facility] Name Value Range Interpretation Description Data Sup porting Code Source(s) Document(s ) SARS [facility] coronavirus 2 RNA This lab was ordered by [facility] and reported by [facility]. Procedure
[2019-11-12] MEDS ORDERED: CEFTRIAXONE 2 GM in DEXTROSE 5%-WATER 100 ML IVPB ONE (11:30)
[2019-11-12] MEDS ORDERED: DEXTROSE 5%-WATER 100 ML IVPB ONE (12:56)
[2019-11-12 13:19] VITALS: TEMP 98.4
[2019-11-12 13:33] VITALS: BP 112/65; PULSE 57
== END 2019-11-12 13:33 | disposition home or self-care (01) ==
LOC: JINFUSION 04:57 → J7W 12:39 → JINFUSION 13:33
PROVIDERS: ATTEND Internal Medicine Infectious Disease
DX: E13.69 Other specified diabetes mellitus with other specified complication (principal); M86.8X7 Other osteomyelitis, ankle and foot; E13.22 Other specified diabetes mellitus with diabetic chronic kidney disease; I12.9 Hypertensive chronic kidney disease with stage 1 through stage 4 chronic kidney disease, or unspecified chronic kidney disease; N18.9 Chronic kidney disease, unspecified; N17.9 Acute kidney failure, unspecified; Z79.84 Long term (current) use of oral hypoglycemic drugs
CPT/HCPCS: 96365

== ENCOUNTER 2019-11-13 05:24 | Day surgery (SDC) | payer BC ==
[2019-11-13] MEDS ORDERED: DEXTROSE 5%-WATER 100 ML IVPB ONE (11:26)
[2019-11-13] MEDS ORDERED: CEFTRIAXONE 2 GM in DEXTROSE 5%-WATER 100 ML IVPB ONE (11:30)
[2019-11-13 11:34] VITALS: BP 126/77; PULSE 53; TEMP 98.6
== END 2019-11-13 12:07 | disposition home or self-care (01) ==
LOC: JINFUSION 05:24 → J7W 10:46 → JINFUSION 12:07
PROVIDERS: ATTEND Internal Medicine Infectious Disease
DX: E13.69 Other specified diabetes mellitus with other specified complication (principal); M86.8X7 Other osteomyelitis, ankle and foot; E13.22 Other specified diabetes mellitus with diabetic chronic kidney disease; I12.9 Hypertensive chronic kidney disease with stage 1 through stage 4 chronic kidney disease, or unspecified chronic kidney disease; N18.9 Chronic kidney disease, unspecified; N17.9 Acute kidney failure, unspecified; Z79.84 Long term (current) use of oral hypoglycemic drugs
CPT/HCPCS: 96365; G0463-25

== ENCOUNTER 2019-11-14 05:57 | Day surgery (SDC) | payer BC ==
--- OUTSIDE RECORDS SUMMARY | 2019-11-14 06:00 | XMS ---
:1960 [facility] Support Name Relationship Address Phone UE Unavailable Unavailable [place] [address] [address]LLER[place] [address] Re-disclosure Warning The records that you are [...] is protected by Article 27-F of the [facility] Public Health law. If you continue you may haveaccess to information: Regarding HIV / AIDS; Provided by facilities licensed or operated by the [facility] Office of Mental Health; or Provided by the [facility] Office for People With Developmental Disabilities. If such information is present, then the following [facility] mandated warning applies: This information has been [...] law may result in a fine or custodial sentence or both. A general authorization for the release of medical or other information is NOT sufficient authorization for further disclosure. Insurance Providers Payer name Policy type Policy ID Covered Covered green party's Policy P marissa / Coverage green party ID relationship to [employer] Inf ormation type zuniga BC EPO [id number] SP [id number] BC EPO [id number] SP [id number] BLUE CROSS 1 [id number] [facility] Results ID Date Data Source [id number] 10/27/2019 12:50:00 PM EDT [facility] Name Value Range Interpretation Description Data Sup porting Code Source(s) Document(s ) SARS [facility] coronavirus 2 RNA This lab was ordered by [facility] and reported by [facility]. Procedure
[2019-11-14] MEDS ORDERED: CEFTRIAXONE 2 GM in DEXTROSE 5%-WATER 100 ML IVPB ONE (12:00)
[2019-11-14] MEDS ORDERED: DEXTROSE 5%-WATER 100 ML IVPB ONE (12:02)
[2019-11-14 12:35] VITALS: TEMP 98.1
[2019-11-14 12:57] VITALS: BP 137/80; PULSE 53
== END 2019-11-14 13:01 | disposition home or self-care (01) ==
LOC: JINFUSION 05:57 → J7W 11:47 → JINFUSION 13:01
PROVIDERS: ATTEND Internal Medicine Infectious Disease
DX: E13.69 Other specified diabetes mellitus with other specified complication (principal); M86.8X7 Other osteomyelitis, ankle and foot; E13.22 Other specified diabetes mellitus with diabetic chronic kidney disease; I12.9 Hypertensive chronic kidney disease with stage 1 through stage 4 chronic kidney disease, or unspecified chronic kidney disease; N18.9 Chronic kidney disease, unspecified; N17.9 Acute kidney failure, unspecified; Z79.84 Long term (current) use of oral hypoglycemic drugs
CPT/HCPCS: 96365

== ENCOUNTER 2019-11-15 12:11 | Day surgery (SDC) | payer BC ==
--- OUTSIDE RECORDS SUMMARY | 2019-11-15 12:14 | XMS ---
:1960 [facility] Support Name Relationship Address Phone UE Unavailable Unavailable [place] [address] [address]LLER[place] [address] Re-disclosure Warning The records that you are [...] is protected by Article 27-F of the [facility] Public Health law. If you continue you may haveaccess to information: Regarding HIV / AIDS; Provided by facilities licensed or operated by the [facility] Office of Mental Health; or Provided by the [facility] Office for People With Developmental Disabilities. If such information is present, then the following [facility] mandated warning applies: This information has [...] law may result in a fine or skilled nursing sentence or both. A general authorization for the release of medical or other information is NOT sufficient authorization for further disclosure. Insurance Providers Payer name Policy type Policy ID Covered Covered constitution party's Policy P marissa / Coverage constitution party ID relationship to [employer] Inf ormation type zuniga BC EPO [id number] SP [id number] BC EPO [id number] SP [id number] BLUE CROSS 1 [id number] 225 AND BLUE 5 [facility] Results ID Date Data Source [id number] 10/27/2019 12:50:00 PM EDT [facility] Name Value Range Interpretation Description Data Sup porting Code Source(s) Document(s ) SARS [facility] coronavirus 2 RNA This lab was ordered by [facility] and reported by [facility]. Procedure
[2019-11-15 12:19] VITALS: TEMP 98
[2019-11-15] MEDS ORDERED: DEXTROSE 5%-WATER 100 ML IVPB ONE (12:27)
[2019-11-15] MEDS ORDERED: CEFTRIAXONE 2 GM in DEXTROSE 5%-WATER 100 ML IVPB ONE (12:30)
[2019-11-15 13:18] VITALS: BP 138/84; PULSE 48
== END 2019-11-15 13:31 | disposition home or self-care (01) ==
LOC: J7W 12:11 → JINFUSION 12:11
PROVIDERS: ATTEND Internal Medicine Infectious Disease
DX: E13.69 Other specified diabetes mellitus with other specified complication (principal); M86.8X7 Other osteomyelitis, ankle and foot; E13.22 Other specified diabetes mellitus with diabetic chronic kidney disease; I12.9 Hypertensive chronic kidney disease with stage 1 through stage 4 chronic kidney disease, or unspecified chronic kidney disease; N18.9 Chronic kidney disease, unspecified; N17.9 Acute kidney failure, unspecified; Z79.84 Long term (current) use of oral hypoglycemic drugs
CPT/HCPCS: 96365

== ENCOUNTER 2019-11-16 10:55 | Day surgery (SDC) | payer BC ==
[2019-11-16] MEDS ORDERED: DEXTROSE 5%-WATER 100 ML IVPB ONE ×2 (10:59→11:18)
--- OUTSIDE RECORDS SUMMARY | 2019-11-16 10:59 | XMS ---
:1960 [facility] Support Name Relationship Address Phone UE Unavailable Unavailable Unavailable [place] [address] [address]LLERMO [place] [address] Re-disclosure Warning The records that you are [...] is protected by Article 27-F of the [facility] Public Health law. If you continue you may haveaccess to information: Regarding HIV / AIDS; Provided by facilities licensed or operated by the [facility] Office of Mental Health; or Provided by the [facility] Office for People With Developmental Disabilities. If such information is present, then the following [facility] mandated warning applies: This information has been [...] law may result in a fine or shelter sentence or both. A general authorization for the release of medical or other information is NOT sufficient authorization for further disclosure. Insurance Providers Payer name Policy type Policy ID Covered Covered alliance party's Policy P marissa / Coverage alliance party ID relationship to [employer] Inf ormation type zuniga BC EPO [id number] SP [id number] BC EPO [id number] SP [id number] BLUE CROSS 1 [id number] 225 AND BLUE 5 [facility] Results ID Date Data Source [id number] 10/27/2019 12:50:00 PM EDT [facility] Name Value Range Interpretation Description Data Sup porting Code Source(s) Document(s ) SARS [facility] coronavirus 2 RNA This lab was ordered by [facility] and reported by [facility]. Procedure
[2019-11-16] MEDS ORDERED: CEFTRIAXONE 2 GM in DEXTROSE 5%-WATER 100 ML IVPB ONE ×2 (11:00→11:15)
[2019-11-16 17:11] VITALS: BP 142/80; PULSE 82; TEMP 98
== END 2019-11-16 12:15 | disposition home or self-care (01) ==
LOC: J7W 10:55 → JINFUSION 10:55
PROVIDERS: ATTEND Internal Medicine Infectious Disease
DX: E13.69 Other specified diabetes mellitus with other specified complication (principal); M86.8X7 Other osteomyelitis, ankle and foot; E13.22 Other specified diabetes mellitus with diabetic chronic kidney disease; I12.9 Hypertensive chronic kidney disease with stage 1 through stage 4 chronic kidney disease, or unspecified chronic kidney disease; N18.9 Chronic kidney disease, unspecified; N17.9 Acute kidney failure, unspecified; Z79.84 Long term (current) use of oral hypoglycemic drugs
CPT/HCPCS: 96365

== ENCOUNTER 2019-11-17 07:40 | Day surgery (SDC) | payer BC ==
--- OUTSIDE RECORDS SUMMARY | 2019-11-17 07:44 | XMS ---
:1960 [facility] Name Relationship Address Phone UE Unavailable Unavailable Un[place] [address] [place] [address] Re-disclosure Warning The records that you are [...] law may result in a fine or snf sentence or both. A general authorization for the release of medical or other information is NOT sufficient authorization for further disclosure. Insurance Providers Payer name Policy type Policy ID Covered Covered libertarian's Policy P marissa / Coverage libertarian ID relationship to Zuniga Inf ormation type zuniga BC EPO [id number] SP [id number] BC EPO [id number] SP [id number] 04 BLUE CROSS 1 [id number] 225 AND BLUE 5 [facility] Results ID Date Data Source [id number] 10/27/2019 12:50:00 PM EDT [facility] Name Value Range Interpretation Description Data Sup porting Code Source(s) Document(s ) SARS [facility] coronavirus 2 RNA This lab was ordered by [facility] and reported by [facility]. Procedure
[2019-11-17] MEDS ORDERED: DEXTROSE 5%-WATER 100 ML IVPB ONE (11:27)
[2019-11-17] MEDS ORDERED: CEFTRIAXONE 2 GM in DEXTROSE 5%-WATER 100 ML IVPB ONE (11:30)
[2019-11-17 11:36] VITALS: BP 136/94; PULSE 46; TEMP 98.3
== END 2019-11-17 15:34 | disposition home or self-care (01) ==
LOC: JINFUSION 07:40 → J7W 10:56 → JINFUSION 15:34
PROVIDERS: ATTEND Internal Medicine Infectious Disease
DX: E13.69 Other specified diabetes mellitus with other specified complication (principal); M86.8X7 Other osteomyelitis, ankle and foot; E13.22 Other specified diabetes mellitus with diabetic chronic kidney disease; I12.9 Hypertensive chronic kidney disease with stage 1 through stage 4 chronic kidney disease, or unspecified chronic kidney disease; N18.9 Chronic kidney disease, unspecified; N17.9 Acute kidney failure, unspecified; Z79.84 Long term (current) use of oral hypoglycemic drugs
CPT/HCPCS: 96365

== ENCOUNTER 2019-11-18 05:12 | Day surgery (SDC) | payer BC ==
--- OUTSIDE RECORDS SUMMARY | 2019-11-18 05:16 | XMS ---
:1960 [facility] Name Relationship Address Phone UE Unavailable Unavailable Unavailable [place] [address] [address]LLERMO [place] [address] Re-disclosure Warning The records that you are [...] is protected by Article 27-F of the [facility] Public Health law. If you continue you may haveaccess to information: Regarding HIV / AIDS; Provided by facilities licensed or operated by the [facility] Office of Mental Health; or Provided by the [facility] Office for People With Developmental Disabilities. If such information is present, then the following [facility] mandated warning applies: This information has been [...] law may result in a fine or nursing home sentence or both. A general authorization for the release of medical or other information is NOT sufficient authorization for further disclosure. Insurance Providers Payer name Policy type Policy ID Covered Covered alliance party's Policy P marissa / Coverage alliance party ID relationship to Zuniga Inf ormation type zuniga BC EPO [id number] SP [id number] BC EPO [id number] SP [id number] 04 BLUE CROSS 1 [id number] 1 [id number] 225 AND BLUE 5 [facility] Results ID Date Data Source [id number] 10/27/2019 12:50:00 PM EDT [facility] Name Value Range Interpretation Description Data Sup porting Code Source(s) Document(s ) SARS [facility] coronavirus 2 RNA This lab was ordered by [facility] and reported by [facility]. Procedure
[2019-11-18 10:57] LABS: HEMATOCRIT 43.9 % (35.4-49); HEMOGLOBIN 15.2 GM/dL (11.7-16.9); MCH 30.9 pg (25.7-33.7); MCHC 34.7 g/dl (32.0-35.9); MEAN PLT VOLUME 8.7 fl (7.5-11.1); PLATELET COUNT 155 K/MM3 (134-434); RBC 4.93 M/mm3 (4.00-5.60); RDW 13.5 % (11.9-15.9); WHITE BLOOD COUNT 7.3 K/mm3 (4.0-10.0)
[2019-11-18] MEDS ORDERED: DEXTROSE 5%-WATER 100 ML IVPB ONE (11:12)
[2019-11-18] MEDS ORDERED: CEFTRIAXONE 2 GM in DEXTROSE 5%-WATER 100 ML IVPB ONE (11:15)
[2019-11-18 11:19] LABS: ANION GAP 7 MMOL/L (8-16); BLOOD UREA NITROGEN 23.7 mg/dL (7-18); CALCIUM 9.3 mg/dL (8.5-10.1); CHLORIDE 105 mmol/L (98-107); CO2 28 mmol/L (21-32); CREATININE 1.4 mg/dL (0.55-1.3); GLUCOSE,RANDOM 149 mg/dL (74-106); POTASSIUM 4.2 mmol/L (3.5-5.1); SODIUM 139 mmol/L (136-145)
[2019-11-18 11:23] VITALS: BP 140/64; PULSE 63; TEMP 98
[2019-11-18 12:06] LABS: ERYTHROCYTE SEDIMENTATION RATE 3 mm/hr (0-20)
== END 2019-11-18 14:32 | disposition home or self-care (01) ==
LOC: JINFUSION 05:12 → J7W 10:38 → JINFUSION 14:32
PROVIDERS: ATTEND Internal Medicine Infectious Disease
DX: E13.69 Other specified diabetes mellitus with other specified complication (principal); M86.8X7 Other osteomyelitis, ankle and foot; E13.22 Other specified diabetes mellitus with diabetic chronic kidney disease; I12.9 Hypertensive chronic kidney disease with stage 1 through stage 4 chronic kidney disease, or unspecified chronic kidney disease; N17.9 Acute kidney failure, unspecified; Z79.84 Long term (current) use of oral hypoglycemic drugs
CPT/HCPCS: 36415; 80048; 85027; 85651; 86140; 96365

== ENCOUNTER 2019-11-19 06:52 | Day surgery (SDC) | payer BC ==
--- OUTSIDE RECORDS SUMMARY | 2019-11-19 06:56 | XMS ---
:1960 [facility] Name Relationship Address Phone UE Unavailable Unavailable [place] [address] [place] [address] Re-disclosure Warning The records that you are [...] is protected by Article 27-F of the [facility] Public Health law. If you continue you may haveaccess to information: Regarding HIV / AIDS; Provided by facilities licensed or operated by the [facility] Office of Mental Health; or Provided by the [facility] Office for People With Developmental Disabilities. If such information is present, then the following [facility] mandated warning applies: This information [...] Zuniga Inf ormation type zuniga BC EPO [id number] SP [id number] 04 BC EPO [id number] SP [id number] 04 BLUE CROSS 1 [id number] 225 AND BLUE 5 [facility] Results ID Date Data Source [id number] 10/27/2019 12:50:00 PM EDT [facility] Name Value Range Interpretation Description Data Sup porting Code Source(s) Document(s ) SARS [facility] coronavirus 2 RNA This lab was ordered by [facility] and reported by [facility]. Procedure
[2019-11-19] MEDS ORDERED: CEFTRIAXONE 2 GM in DEXTROSE 5%-WATER 100 ML IVPB ONE (14:45)
[2019-11-19] MEDS ORDERED: DEXTROSE 5%-WATER 100 ML IVPB ONE (14:52)
[2019-11-19 15:05] VITALS: BP 128/80; PULSE 58; TEMP 98.3
== END 2019-11-19 15:42 | disposition home or self-care (01) ==
LOC: JINFUSION 06:52 → J7W 14:17 → JINFUSION 15:42
PROVIDERS: ATTEND Internal Medicine Infectious Disease
DX: E13.69 Other specified diabetes mellitus with other specified complication (principal); M86.8X7 Other osteomyelitis, ankle and foot; E13.22 Other specified diabetes mellitus with diabetic chronic kidney disease; I12.9 Hypertensive chronic kidney disease with stage 1 through stage 4 chronic kidney disease, or unspecified chronic kidney disease; N17.9 Acute kidney failure, unspecified; Z79.84 Long term (current) use of oral hypoglycemic drugs
CPT/HCPCS: 96365

== ENCOUNTER 2019-11-20 06:04 | Day surgery (SDC) | payer BC ==
--- OUTSIDE RECORDS SUMMARY | 2019-11-20 06:09 | XMS ---
:1960 [facility] Name Relationship Address Phone UE Unavailable Unavailable Unavailable [place] [address] [address] [place] [address] Re-disclosure Warning The records that you are [...] is protected by Article 27-F of the [facility] Public Health law. If you continue you may haveaccess to information: Regarding HIV / AIDS; Provided by facilities licensed or operated by the [facility] Office of Mental Health; or Provided by the [facility] Office for People With Developmental Disabilities. If such information is present, then the following [facility] mandated warning applies: This information has [...] law may result in a fine or longterm sentence or both. A general authorization for the release of medical or other information is NOT sufficient authorization for further disclosure. Insurance Providers Payer name Policy type Policy ID Covered Covered green party's Policy P marissa / Coverage green party ID relationship to Zuniga Inf ormation type zuniga BC EPO [id number] SP [id number] 04 BC EPO [id number] SP [id number] 04 BLUE CROSS 1 [id number] 1 [id number] 225 AND BLUE 5 [facility] Results ID Date Data Source [id number] 10/27/2019 12:50:00 PM EDT [facility] Name Value Range Interpretation Description Data Sup porting Code Source(s) Document(s ) SARS [facility] coronavirus 2 RNA This lab was ordered by [facility] and reported by [facility]. Procedure
[2019-11-20] MEDS ORDERED: CEFTRIAXONE 2 GM in DEXTROSE 5%-WATER 100 ML IVPB SCH (14:00)
[2019-11-20] MEDS ORDERED: DEXTROSE 5%-WATER 100 ML IVPB ONE (14:14)
[2019-11-20 14:27] VITALS: BP 110/65; PULSE 51; TEMP 98.2
== END 2019-11-20 15:00 | disposition home or self-care (01) ==
LOC: JINFUSION 06:04 → J7W 14:05 → JINFUSION 15:00
PROVIDERS: ATTEND Internal Medicine Infectious Disease
DX: E13.69 Other specified diabetes mellitus with other specified complication (principal); M86.8X7 Other osteomyelitis, ankle and foot; E13.22 Other specified diabetes mellitus with diabetic chronic kidney disease; I12.9 Hypertensive chronic kidney disease with stage 1 through stage 4 chronic kidney disease, or unspecified chronic kidney disease; N17.9 Acute kidney failure, unspecified; N18.9 Chronic kidney disease, unspecified; Z79.84 Long term (current) use of oral hypoglycemic drugs
CPT/HCPCS: 96365

== ENCOUNTER 2019-11-21 06:10 | Day surgery (SDC) | payer BC ==
--- OUTSIDE RECORDS SUMMARY | 2019-11-21 06:19 | XMS ---
:1960 [facility] Name Relationship Address Phone UE Unavailable Unavailable [place] [address] [address] [address] Re-disclosure Warning The records that you are [...] is protected by Article 27-F of the [facility] Public Health law. If you continue you may haveaccess to information: Regarding HIV / AIDS; Provided by facilities licensed or operated by the [facility] Office of Mental Health; or Provided by the [facility] Office for People With Developmental Disabilities. If such information is present, then the following [facility] mandated warning applies: This information has been [...] law may result in a fine or long term sentence or both. A general authorization for the release of medical or other information is NOT sufficient authorization for further disclosure. Insurance Providers Payer name Policy type Policy ID Covered Covered alliance party's Policy P marissa / Coverage alliance party ID relationship to Zuniga Inf ormation type zuniga BC EPO [id number] SP [id number] 04 BC EPO [id number] SP [id number] 04 BLUE CROSS 1 [id number] 1 [id number] 225 AND BLUE 5 [facility] Results ID Date Data Source [id number] 10/27/2019 12:50:00 PM EDT [facility] Name Value Range Interpretation Description Data Sup porting Code Source(s) Document(s ) SARS [facility] coronavirus 2 RNA This lab was ordered by [facility] and reported by [facility]. Procedure
[2019-11-21] MEDS ORDERED: CEFTRIAXONE 2 GM in DEXTROSE 5%-WATER 100 ML IVPB ONE (13:15)
[2019-11-21] MEDS ORDERED: DEXTROSE 5%-WATER 100 ML IVPB ONE (14:41)
[2019-11-21 15:04] VITALS: BP 126/77; PULSE 59; TEMP 97.9
== END 2019-11-21 15:36 | disposition home or self-care (01) ==
LOC: JINFUSION 06:10 → J7W 14:21 → JINFUSION 15:36
PROVIDERS: ATTEND Internal Medicine Infectious Disease
DX: E13.69 Other specified diabetes mellitus with other specified complication (principal); M86.8X7 Other osteomyelitis, ankle and foot; E13.22 Other specified diabetes mellitus with diabetic chronic kidney disease; I12.9 Hypertensive chronic kidney disease with stage 1 through stage 4 chronic kidney disease, or unspecified chronic kidney disease; N17.9 Acute kidney failure, unspecified; N18.9 Chronic kidney disease, unspecified; Z79.84 Long term (current) use of oral hypoglycemic drugs
CPT/HCPCS: 96365

== ENCOUNTER 2019-11-22 13:00 | Day surgery (SDC) | payer BC ==
--- OUTSIDE RECORDS SUMMARY | 2019-11-22 13:05 | XMS ---
:1960 [facility] Name Relationship Address Phone UE Unavailable Unavailable Unavailable [place] [address] [address] [address] Re-disclosure Warning The records that you are [...] is protected by Article 27-F of the [facility] Public Health law. If you continue you may haveaccess to information: Regarding HIV / AIDS; Provided by facilities licensed or operated by the [facility] Office of Mental Health; or Provided by the [facility] Office for People With Developmental Disabilities. If such information is present, then the following [facility] mandated warning applies: This information has been [...] law may result in a fine or detention sentence or both. A general authorization for the release of medical or other information is NOT sufficient authorization for further disclosure. Insurance Providers Payer name Policy type Policy ID Covered Covered libertarian's Policy P marissa / Coverage libertarian ID relationship to Zuniga Inf ormation type zuniga BC EPO [id number] SP [id number] 04 BC EPO [id number] SP [id number] 604 04 BLUE CROSS 1 [id number] 1 [id number] 225 AND BLUE 5 [facility] Results ID Date Data Source [id number] 11/18/2019 10:00:00 AM EDT [facility] Name Value Range Interpretation Description Data Sup porting Code Source(s) Document(s ) 2019 Novel [facility] Coronavirus RNA Interpretation Unspecified Specimen Qualitative [facility] Probe Detection This lab was ordered by [facility] and reported [address] [facility]. ID Date Data Source [id number] 10/27/2019 12:50:00 PM EDT [facility] Name Value Range Interpretation Description Data Sup porting Code Source(s) Document(s ) SARS [facility] coronavirus 2 RNA This lab was ordered by [facility] and reported by [facility]. Procedure
[2019-11-22 13:13] VITALS: BP 129/75; PULSE 56; TEMP 98.5
[2019-11-22] MEDS ORDERED: DEXTROSE 5%-WATER 100 ML IVPB ONE (13:17)
[2019-11-22] MEDS ORDERED: CEFTRIAXONE 2 GM in DEXTROSE 5%-WATER 100 ML IVPB ONE (13:30)
== END 2019-11-22 14:00 | disposition home or self-care (01) ==
LOC: JINFUSION 13:00 → J7W 13:01 → JINFUSION 14:00
PROVIDERS: ATTEND Internal Medicine Infectious Disease
DX: E13.69 Other specified diabetes mellitus with other specified complication (principal); M86.8X7 Other osteomyelitis, ankle and foot; E13.22 Other specified diabetes mellitus with diabetic chronic kidney disease; I12.9 Hypertensive chronic kidney disease with stage 1 through stage 4 chronic kidney disease, or unspecified chronic kidney disease; N17.9 Acute kidney failure, unspecified; N18.9 Chronic kidney disease, unspecified; Z79.84 Long term (current) use of oral hypoglycemic drugs
CPT/HCPCS: 96365

== ENCOUNTER 2019-11-23 13:04 | Day surgery (SDC) | payer BC ==
--- OUTSIDE RECORDS SUMMARY | 2019-11-23 13:08 | XMS ---
:1960 [facility] Name Relationship Address Phone UE Unavailable Unavailable Unavailable [place] [address] [address] [address] Re-disclosure Warning The records that you are [...] is protected by Article 27-F of the [facility] Public Health law. If you continue you may haveaccess to information: Regarding HIV / AIDS; Provided by facilities licensed or operated by the [facility] Office of Mental Health; or Provided by the [facility] Office for People With Developmental Disabilities. If such information is present, then the following [facility] mandated warning applies: This information has [...] law may result in a fine or usp sentence or both. A general authorization for the release of medical or other information is NOT sufficient authorization for further disclosure. Insurance Providers Payer name Policy type Policy ID Covered Covered constitution party's Policy P marissa / Coverage constitution party ID relationship to Zuniga Inf ormation type zuniga BC EPO [id number] SP [id number] 04 BC EPO [id number] SP [id number] 04 BLUE CROSS 1 [id number] 1 [id number] 225 AND BLUE 5 [facility] Results ID Date Data Source [id number] 11/18/2019 10:00:00 AM EDT [facility] Name Value Range Interpretation Description Data Sup porting Code Source(s) Document(s ) [address] [facility] Coronavirus RNA Interpretation Unspecified Specimen Qualitative [facility] Probe Detection This lab was ordered by [facility] and reported by [facility]. ID Date Data Source [id number] 10/27/2019 12:50:00 PM EDT [facility] Name Value Range Interpretation Description Data Sup porting Code Source(s) Document(s ) SARS [facility] coronavirus 2 RNA This lab was ordered by [facility] and reported by [facility]. Procedure
[2019-11-23] MEDS ORDERED: CEFTRIAXONE 2 GM in DEXTROSE 5%-WATER 100 ML IVPB ONE (13:15)
[2019-11-23] MEDS ORDERED: DEXTROSE 5%-WATER 100 ML IVPB ONE (13:18)
[2019-11-23 13:34] VITALS: BP 126/64; PULSE 71; TEMP 98.6
== END 2019-11-23 14:00 | disposition home or self-care (01) ==
LOC: JINFUSION 13:04 → J7W 13:05 → JINFUSION 14:00
PROVIDERS: ATTEND Internal Medicine Infectious Disease
DX: E13.69 Other specified diabetes mellitus with other specified complication (principal); E13.22 Other specified diabetes mellitus with diabetic chronic kidney disease; I12.9 Hypertensive chronic kidney disease with stage 1 through stage 4 chronic kidney disease, or unspecified chronic kidney disease; N17.9 Acute kidney failure, unspecified; N18.9 Chronic kidney disease, unspecified; Z79.84 Long term (current) use of oral hypoglycemic drugs
CPT/HCPCS: 96365

== ENCOUNTER 2019-11-24 06:14 | Day surgery (SDC) | payer BC ==
--- OUTSIDE RECORDS SUMMARY | 2019-11-24 06:17 | XMS ---
:1960 [facility] Name Relationship Address Phone UE Unavailable Unavailable [place] [address] [place] [address] Re-disclosure Warning The records that you are [...] is protected by Article 27-F of the [facility] Public Health law. If you continue you may haveaccess to information: Regarding HIV / AIDS; Provided by facilities licensed or operated by the [facility] Office of Mental Health; or Provided by the [facility] Office for People With Developmental Disabilities. If such information is present, then the following [facility] mandated warning applies: This information has [...] law may result in a fine or [facility] sentence or both. A general authorization for the release of medical or other information is NOT sufficient authorization for further disclosure. Insurance Providers Payer name Policy type Policy ID Covered Covered constitution party's Policy P marissa / Coverage constitution party ID relationship to Zuniga Inf ormation type zuniga BC EPO [id number] SP [id number] 04 BC EPO [id number] SP [id number] 04 BLUE CROSS 1 [id number] 225 AND BLUE 5 [facility] Results ID Date Data Source [id number] 11/18/2019 10:00:00 AM EDT [facility] Name Value Range Interpretation Description Data Sup porting Code Source(s) Document(s ) 2019 Novel [facility] Coronavirus RNA Interpretation Unspecified Specimen Qualitative [place] Probe Detection This lab was ordered by [facility] and reported by [facility]. ID Date Data Source [id number] 10/27/2019 12:50:00 PM EDT [facility] Name Value Range Interpretation Description Data Sup porting Code Source(s) Document(s ) SARS [facility] coronavirus 2 RNA This lab was ordered by [facility] and reported by [facility]. Procedure
[2019-11-24] MEDS ORDERED: CEFTRIAXONE 2 GM in DEXTROSE 5%-WATER 100 ML IVPB ONE (14:30)
[2019-11-24] MEDS ORDERED: DEXTROSE 5%-WATER 100 ML IVPB ONE (14:32)
[2019-11-24 14:42] VITALS: BP 120/73; PULSE 58; TEMP 98.7
== END 2019-11-24 15:09 | disposition home or self-care (01) ==
LOC: JINFUSION 06:14 → J7W 14:28 → JINFUSION 15:09
PROVIDERS: ATTEND Internal Medicine Infectious Disease
DX: E13.69 Other specified diabetes mellitus with other specified complication (principal); M86.8X7 Other osteomyelitis, ankle and foot; E13.22 Other specified diabetes mellitus with diabetic chronic kidney disease; I12.9 Hypertensive chronic kidney disease with stage 1 through stage 4 chronic kidney disease, or unspecified chronic kidney disease; N17.9 Acute kidney failure, unspecified; Z79.84 Long term (current) use of oral hypoglycemic drugs
CPT/HCPCS: 96365

== ENCOUNTER 2019-11-25 05:53 | Day surgery (SDC) | payer BC ==
--- OUTSIDE RECORDS SUMMARY | 2019-11-25 05:57 | XMS ---
:1960 [facility] Support Name Relationship Address Phone UE Unavailable Unavailable Unavailable [place] [address] [address] [address] Re-disclosure Warning The records that you are [...] is protected by Article 27-F of the [facility] Public Health law. If you continue you may haveaccess to information: Regarding HIV / AIDS; Provided by facilities licensed or operated by the [facility] Office of Mental Health; or Provided by the [facility] Office for People With Developmental Disabilities. If such information is present, then the following [facility] mandated warning applies: This information has been [...] law may result in a fine or prison sentence or both. A general authorization for the release of medical or other information is NOT sufficient authorization for further disclosure. Insurance Providers Payer name Policy type Policy ID Covered Covered alliance party's Policy P marissa / Coverage alliance party ID relationship to Zuniga Inf ormation type zuniga BC EPO [id number] SP [id number] 604 04 BC EPO [id number] SP [id number] 04 BLUE CROSS 1 [id number] 1 [id number] 225 AND BLUE 5 [facility] Results ID Date Data Source [id number] 11/18/2019 10:00:00 AM EDT [facility] Name Value Range Interpretation Description Data Sup porting Code Source(s) Document(s ) 2019 Novel [facility] Coronavirus RNA Interpretation Unspecified Specimen Qualitative [place] Probe Detection This lab was ordered by [facility]91 and reported by [facility]. ID Date Data Source [id number] 10/27/2019 12:50:00 PM EDT [facility] Name Value Range Interpretation Description Data Sup porting Code Source(s) Document(s ) SARS [facility] coronavirus 2 RNA This lab was ordered by [facility] and reported by [facility]. Procedure
[2019-11-25 14:41] LABS: HEMATOCRIT 45.8 % (35.4-49); HEMOGLOBIN 15.5 GM/dL (11.7-16.9); MCH 30.2 pg (25.7-33.7); MCHC 33.9 g/dl (32.0-35.9); MEAN PLT VOLUME 8.4 fl (7.5-11.1); PLATELET COUNT 178 K/MM3 (134-434); RBC 5.14 M/mm3 (4.00-5.60); RDW 13.7 % (11.9-15.9); WHITE BLOOD COUNT 9.6 K/mm3 (4.0-10.0)
[2019-11-25] MEDS ORDERED: DEXTROSE 5%-WATER 100 ML IVPB ONE (15:04)
[2019-11-25 15:06] LABS: ANION GAP 8 MMOL/L (8-16); BLOOD UREA NITROGEN 29.7 mg/dL (7-18); CALCIUM 9.9 mg/dL (8.5-10.1); CHLORIDE 107 mmol/L (98-107); CO2 27 mmol/L (21-32); CREATININE 1.5 mg/dL (0.55-1.3); GLUCOSE,RANDOM 139 mg/dL (74-106); POTASSIUM 4.1 mmol/L (3.5-5.1); SODIUM 141 mmol/L (136-145)
[2019-11-25 15:13] VITALS: TEMP 98.8
[2019-11-25] MEDS ORDERED: CEFTRIAXONE 2 GM in DEXTROSE 5%-WATER 100 ML IVPB ONE (15:15)
[2019-11-25 15:19] LABS: ERYTHROCYTE SEDIMENTATION RATE 2 mm/hr (0-20)
[2019-11-25 15:31] VITALS: BP 121/76; PULSE 59
== END 2019-11-25 15:35 | disposition home or self-care (01) ==
LOC: JINFUSION 05:53 → J7W 14:28 → JINFUSION 15:35
PROVIDERS: ATTEND Internal Medicine Infectious Disease
DX: E13.69 Other specified diabetes mellitus with other specified complication (principal); M86.8X7 Other osteomyelitis, ankle and foot; E13.22 Other specified diabetes mellitus with diabetic chronic kidney disease; I12.9 Hypertensive chronic kidney disease with stage 1 through stage 4 chronic kidney disease, or unspecified chronic kidney disease; N17.9 Acute kidney failure, unspecified; Z79.84 Long term (current) use of oral hypoglycemic drugs
CPT/HCPCS: 36415; 80048; 85027; 85651; 86140; 96365

== ENCOUNTER 2019-11-26 06:28 | Day surgery (SDC) | payer BC ==
--- OUTSIDE RECORDS SUMMARY | 2019-11-26 06:32 | XMS ---
:1960 Author [facility] Support Name Relationship Address Phone UE Unavailable Unavailable Unavailable [place] [address] [address] [address] Re-disclosure Warning The records that you are [...] is protected by Article 27-F of the [facility] Public Health law. If you continue you may haveaccess to information: Regarding HIV / AIDS; Provided by facilities licensed or operated by the [facility] Office of Mental Health; or Provided by the [facility] Office for People With Developmental Disabilities. If such information is present, then the following [facility] mandated warning applies: This information [...] law may result in a fine or halfway sentence or both. A general authorization for the release of medical or other information is NOT sufficient authorization for further disclosure. Insurance Providers Payer name Policy type Policy ID Covered Covered libertarian's Policy P marissa / Coverage libertarian ID relationship to Zuniga Inf ormation type zuniga BC EPO [id number] SP [id number] 04 BC EPO [id number] SP [id number] 04 BLUE CROSS 1 [id number] 225 AND BLUE 5 [facility] Results ID Date Data Source [id number] 11/18/2019 10:00:00 AM EDT [facility] Name Value Range Interpretation Description Data Sup porting Code Source(s) Document(s ) 2019 Novel [facility] Coronavirus RNA Interpretation Unspecified Specimen Qualitative [place] Probe Detection This lab was ordered by [facility]91 and reported by [facility]. ID Date Data Source [id number] 10/27/2019 12:50:00 PM EDT [facility] Name Value Range Interpretation Description Data Sup porting Code Source(s) Document(s ) SARS [facility] coronavirus 2 RNA This lab was ordered by [facility] and reported by [facility]. Procedure
[2019-11-26] MEDS ORDERED: CEFTRIAXONE 2 GM in DEXTROSE 5%-WATER 100 ML IVPB ONE (14:30)
[2019-11-26] MEDS ORDERED: DEXTROSE 5%-WATER 100 ML IVPB ONE (14:35)
[2019-11-26 14:55] VITALS: TEMP 98.3
[2019-11-26 15:39] VITALS: BP 125/77; PULSE 52
== END 2019-11-26 15:40 | disposition home or self-care (01) ==
LOC: JINFUSION 06:28 → J7W 14:24 → JINFUSION 15:40
PROVIDERS: ATTEND Internal Medicine Infectious Disease
DX: E13.69 Other specified diabetes mellitus with other specified complication (principal); M86.8X7 Other osteomyelitis, ankle and foot; E13.22 Other specified diabetes mellitus with diabetic chronic kidney disease; I12.9 Hypertensive chronic kidney disease with stage 1 through stage 4 chronic kidney disease, or unspecified chronic kidney disease; N17.9 Acute kidney failure, unspecified; Z79.84 Long term (current) use of oral hypoglycemic drugs
CPT/HCPCS: 96365

== ENCOUNTER 2019-11-27 06:09 | Day surgery (SDC) | payer BC ==
[2019-11-27] MEDS ORDERED: CEFTRIAXONE 2 GM in DEXTROSE 5%-WATER 100 ML IVPB ONE (15:00)
[2019-11-27] MEDS ORDERED: DEXTROSE 5%-WATER 100 ML IVPB ONE (15:03)
[2019-11-27 15:26] VITALS: TEMP 98.4
[2019-11-27 17:24] VITALS: BP 105/59; PULSE 60
== END 2019-11-27 16:55 | disposition home or self-care (01) ==
LOC: JINFUSION 06:09 → J7W 14:47 → JINFUSION 16:55
PROVIDERS: ATTEND Internal Medicine Infectious Disease
DX: E13.69 Other specified diabetes mellitus with other specified complication (principal); M86.8X7 Other osteomyelitis, ankle and foot; E13.22 Other specified diabetes mellitus with diabetic chronic kidney disease; I12.9 Hypertensive chronic kidney disease with stage 1 through stage 4 chronic kidney disease, or unspecified chronic kidney disease; N17.9 Acute kidney failure, unspecified; Z79.84 Long term (current) use of oral hypoglycemic drugs
CPT/HCPCS: 96365

== ENCOUNTER 2019-11-28 06:40 | Day surgery (SDC) | payer BC ==
--- OUTSIDE RECORDS SUMMARY | 2019-11-28 06:44 | XMS ---
:1960 [facility] Name Relationship Address Phone UE Unavailable Unavailable [place] [address] [place] [address] Re-disclosure Warning The records that you are [...] is protected by Article 27-F of the [facility] Public Health law. If you continue you may haveaccess to information: Regarding HIV / AIDS; Provided by facilities licensed or operated by the [facility] Office of Mental Health; or Provided by the [facility] Office for People With Developmental Disabilities. If such information is present, then the following [facility] mandated warning applies: This information has [...] Zuniga Inf ormation type zuniga BC EPO [id number] SP [id number] 04 BC EPO [id number] SP [id number] 604 04 BLUE CROSS 1 [id number] 1 [id number] 225 AND BLUE 5 [facility] Results ID Date Data Source [id number] 11/18/2019 10:00:00 AM EDT [facility] Name Value Range Interpretation Description Data Sup porting Code Source(s) Document(s ) 2019 Novel [facility] Coronavirus RNA Interpretation Unspecified Specimen Qualitative [facility] Probe Detection This lab was ordered by [facility] and reported by [facility]. ID Date Data Source [id number] 10/27/2019 12:50:00 PM EDT [facility] Name Value Range Interpretation Description Data Sup porting Code Source(s) Document(s ) SARS [facility] coronavirus 2 RNA This lab was ordered by [facility] and reported by [facility]. Procedure
[2019-11-28] MEDS ORDERED: CEFTRIAXONE 2 GM in DEXTROSE 5%-WATER 100 ML IVPB ONE (14:00)
[2019-11-28] MEDS ORDERED: DEXTROSE 5%-WATER 100 ML IVPB ONE (14:19)
[2019-11-28 14:34] VITALS: BP 142/86; PULSE 53; TEMP 97.8
== END 2019-11-28 15:58 | disposition home or self-care (01) ==
LOC: JINFUSION 06:40 → J7W 14:14 → JINFUSION 15:58
PROVIDERS: ATTEND Internal Medicine Infectious Disease
DX: E13.69 Other specified diabetes mellitus with other specified complication (principal); M86.8X7 Other osteomyelitis, ankle and foot; E13.22 Other specified diabetes mellitus with diabetic chronic kidney disease; I12.9 Hypertensive chronic kidney disease with stage 1 through stage 4 chronic kidney disease, or unspecified chronic kidney disease; N17.9 Acute kidney failure, unspecified; Z79.84 Long term (current) use of oral hypoglycemic drugs
CPT/HCPCS: 96365

== ENCOUNTER 2019-11-29 14:26 | Day surgery (SDC) | payer BC ==
--- OUTSIDE RECORDS SUMMARY | 2019-11-29 14:31 | XMS ---
:1960 [facility] Name Relationship Address Phone UE Unavailable Unavailable Unavailable [address] [address] [address]LLERMO [address]ERSON [place] [address] Re-disclosure Warning The records that you are [...] is protected by Article 27-F of the [facility] Public Health law. If you continue you may haveaccess to information: Regarding HIV / AIDS; Provided by facilities licensed or operated by the [facility] Office of Mental Health; or Provided by the [facility] Office for People With Developmental Disabilities. If such information is present, then the following [facility] mandated warning applies: This information has [...] name Policy type Policy ID Covered Covered democrat's Policy P marissa / Coverage democrat ID relationship to Zuniga Inf ormation type zuniga BC EPO [id number] SP [id number] 04 BC EPO [id number] SP [id number] 04 BLUE CROSS 1 [id number] 225 AND BLUE 5 [facility] Results ID Date Data Source [id number] 11/25/2019 01:25:00 PM EDT [facility] Name Value Range Interpretation Description Data Sup porting Code Source(s) Document(s ) 2018 Novel [facility] Coronavirus RNA Interpretation Unspecified Specimen Qualitative [place] Probe Detection This lab was ordered by [place] [address] and reported by [facility]. ID Date Data Source [id number] 11/18/2019 10:00:00 AM EDT [facility] Name Value Range Interpretation Description Data Sup porting Code Source(s) Document(s ) 2019 Novel [facility] Coronavirus RNA Interpretation Unspecified Specimen Qualitative [place] Probe Detection This lab was ordered by [place] [address] and reported by [facility]. ID Date Data Source [id number] 10/27/2019 12:50:00 PM EDT [facility] Name Value Range Interpretation Description Data Sup porting Code Source(s) Document(s ) SARS [facility] coronavirus 2 RNA This lab was ordered by [facility] and reported by [facility]. Procedure
[2019-11-29 14:48] VITALS: TEMP 97.8
[2019-11-29] MEDS ORDERED: CEFTRIAXONE 2 GM in DEXTROSE 5%-WATER 100 ML IVPB ONE (15:00)
[2019-11-29 15:30] VITALS: BP 128/75; PULSE 56
== END 2019-11-29 15:42 | disposition home or self-care (01) ==
LOC: JINFUSION 14:26 → J7W 14:27 → JINFUSION 15:42
PROVIDERS: ATTEND Internal Medicine Infectious Disease
DX: E13.69 Other specified diabetes mellitus with other specified complication (principal); M86.8X7 Other osteomyelitis, ankle and foot; E13.22 Other specified diabetes mellitus with diabetic chronic kidney disease; I12.9 Hypertensive chronic kidney disease with stage 1 through stage 4 chronic kidney disease, or unspecified chronic kidney disease; N17.9 Acute kidney failure, unspecified; Z79.84 Long term (current) use of oral hypoglycemic drugs
CPT/HCPCS: 96365

== ENCOUNTER 2019-11-30 14:18 | Day surgery (SDC) | payer BC ==
[2019-11-30] MEDS ORDERED: DEXTROSE 5%-WATER 100 ML IVPB ONE (14:26)
[2019-11-30] MEDS ORDERED: CEFTRIAXONE 2 GM in DEXTROSE 5%-WATER 100 ML IVPB ONE (14:30)
--- OUTSIDE RECORDS SUMMARY | 2019-11-30 14:34 | XMS ---
:1960 [facility] Name Relationship Address Phone UE Unavailable Unavailable Unavailable [place] [address] [address]LLERMO [place] [address] Re-disclosure Warning The records that you are [...] is protected by Article 27-F of the [facility] Public Health law. If you continue you may haveaccess to information: Regarding HIV / AIDS; Provided by facilities licensed or operated by the [facility] Office of Mental Health; or Provided by the [facility] Office for People With Developmental Disabilities. If such information is present, then the following [facility] mandated warning applies: This information has [...] law may result in a fine or retirement sentence or both. A general authorization for the release of medical or other information is NOT sufficient authorization for further disclosure. Insurance Providers Payer name Policy type Policy ID Covered Covered alliance party's Policy P marissa / Coverage alliance party ID relationship to Zuniga Inf ormation type zuniga BC EPO [id number] SP [id number] BC EPO [id number] SP [id number] BLUE CROSS 1 [id number] AND BLUE 5 [facility] EMPIR Results ID Date Data Source [id number] 11/25/2019 01:25:00 PM EDT [facility] Name Value Range Interpretation Description Data Sup porting Code Source(s) Document(s ) 2018 Novel [facility] Coronavirus RNA Interpretation Unspecified Specimen Qualitative ELHAM Probe Detection This lab was ordered by [place] [address] and reported by [facility]. ID Date Data Source [id number] 11/18/2019 10:00:00 AM EDT [facility] Name Value Range Interpretation Description Data Sup porting Code Source(s) Document(s ) 2019 Novel [facility] Coronavirus RNA Interpretation Unspecified Specimen Qualitative ELHAM Probe Detection This lab was ordered by [place] [address] and reported by [facility]. ID Date Data Source [id number] 10/27/2019 12:50:00 PM EDT [facility] Name Value Range Interpretation Description Data Sup porting Code Source(s) Document(s ) SARS [facility] coronavirus 2 RNA This lab was ordered by [facility] and reported by [facility]. Procedure
[2019-11-30 14:40] VITALS: TEMP 98
[2019-11-30 15:20] VITALS: BP 112/57; PULSE 60
== END 2019-11-30 15:10 | disposition home or self-care (01) ==
LOC: JINFUSION 14:18 → J7W 14:19 → JINFUSION 15:10
PROVIDERS: ATTEND Internal Medicine Infectious Disease
DX: E13.69 Other specified diabetes mellitus with other specified complication (principal); M86.8X7 Other osteomyelitis, ankle and foot; E13.22 Other specified diabetes mellitus with diabetic chronic kidney disease; I12.9 Hypertensive chronic kidney disease with stage 1 through stage 4 chronic kidney disease, or unspecified chronic kidney disease; N17.9 Acute kidney failure, unspecified; Z79.84 Long term (current) use of oral hypoglycemic drugs
CPT/HCPCS: 96365

== ENCOUNTER 2019-12-01 14:15 | Day surgery (SDC) | payer BC ==
[2019-12-01] MEDS ORDERED: DEXTROSE 5%-WATER 100 ML IVPB ONE (14:49)
[2019-12-01] MEDS ORDERED: CEFTRIAXONE 2 GM in DEXTROSE 5%-WATER 100 ML IVPB ONE (15:00)
[2019-12-01 15:01] VITALS: BP 124/74; PULSE 57; TEMP 98.1
== END 2019-12-01 15:28 | disposition home or self-care (01) ==
LOC: JINFUSION 14:15 → J7W 14:16 → JINFUSION 15:28
PROVIDERS: ATTEND Internal Medicine Infectious Disease
DX: E13.69 Other specified diabetes mellitus with other specified complication (principal); M86.8X7 Other osteomyelitis, ankle and foot; E13.22 Other specified diabetes mellitus with diabetic chronic kidney disease; I12.9 Hypertensive chronic kidney disease with stage 1 through stage 4 chronic kidney disease, or unspecified chronic kidney disease; N17.9 Acute kidney failure, unspecified; Z79.84 Long term (current) use of oral hypoglycemic drugs
CPT/HCPCS: 96365

== ENCOUNTER 2019-12-02 06:10 | Day surgery (SDC) | payer BC ==
--- OUTSIDE RECORDS SUMMARY | 2019-12-02 06:15 | XMS ---
:1960 [facility] Name Relationship Address Phone UE Unavailable Unavailable Un[place] [address] [address] [address] Re-disclosure Warning The records that you are [...] is protected by Article 27-F of the [facility] Public Health law. If you continue you may haveaccess to information: Regarding HIV / AIDS; Provided by facilities licensed or operated by the [facility] Office of Mental Health; or Provided by the [facility] Office for People With Developmental Disabilities. If such information is present, then the following [facility] mandated warning applies: This information has [...] law may result in a fine or [place] [facility] sentence or both. A general authorization for the release of medical or other information is NOT sufficient authorization for further disclosure. Insurance Providers Payer name Policy type Policy ID Covered Covered republican's Policy P marissa / Coverage republican ID relationship to Zuniga Inf ormation type zuniga BC EPO [id number] SP [id number] BC EPO [id number] SP [id number] BLUE CROSS 1 [id number] 225 AND BLUE 5 [facility] EMPIR Results ID Date Data Source [id number] 11/25/2019 01:25:00 PM EDT [facility] Name Value Range Interpretation Description Data Sup porting Code Source(s) Document(s ) 2018 Novel [facility] Coronavirus RNA Interpretation Unspecified Specimen Qualitative ELHAM Probe Detection This lab was ordered by [place] [address] and reported by [facility]. ID Date Data Source [id number] 11/18/2019 10:00:00 AM EDT [facility] Name Value Range Interpretation Description Data Sup porting Code Source(s) Document(s ) 2019 Novel [facility] Coronavirus RNA Interpretation Unspecified Specimen Qualitative ELHAM Probe Detection This lab was ordered by [place] [address] and reported by [facility]. ID Date Data Source [id number] 10/27/2019 12:50:00 PM EDT [facility] Name Value Range Interpretation Description Data Sup porting Code Source(s) Document(s ) SARS [facility] coronavirus 2 RNA This lab was ordered by [facility] and reported by [facility]. Procedure
[2019-12-02] MEDS ORDERED: CEFTRIAXONE 2 GM in DEXTROSE 5%-WATER 100 ML IVPB ONE (14:00)
[2019-12-02] MEDS ORDERED: DEXTROSE 5%-WATER 100 ML IVPB ONE (15:18)
[2019-12-02 15:26] LABS: HEMATOCRIT 43.3 % (35.4-49); HEMOGLOBIN 14.9 GM/dL (11.7-16.9); MCH 30.1 pg (25.7-33.7); MCHC 34.4 g/dl (32.0-35.9); MEAN CELL VOLUME 87.7 fl (80-96); MEAN PLT VOLUME 8.6 fl (7.5-11.1); PLATELET COUNT 171 K/MM3 (134-434); RBC 4.94 M/mm3 (4.00-5.60); WHITE BLOOD COUNT 8.4 K/mm3 (4.0-10.0)
[2019-12-02 15:33] VITALS: BP 124/71; PULSE 53; TEMP 98.5
[2019-12-02 15:57] LABS: ANION GAP 7 MMOL/L (8-16); BLOOD UREA NITROGEN 35.9 mg/dL (7-18); CALCIUM 7.7 mg/dL (8.5-10.1); CHLORIDE 105 mmol/L (98-107); CO2 29 mmol/L (21-32); CREATININE 1.3 mg/dL (0.55-1.3); GLUCOSE,RANDOM 80 mg/dL (74-106); POTASSIUM 3.9 mmol/L (3.5-5.1); SODIUM 141 mmol/L (136-145)
[2019-12-02 16:03] LABS: ERYTHROCYTE SEDIMENTATION RATE 2 mm/hr (0-20)
== END 2019-12-02 15:55 | disposition home or self-care (01) ==
LOC: JINFUSION 06:10 → J7W 14:23 → JINFUSION 15:55
PROVIDERS: ATTEND Internal Medicine Infectious Disease
DX: E13.69 Other specified diabetes mellitus with other specified complication (principal); M86.8X7 Other osteomyelitis, ankle and foot; E13.22 Other specified diabetes mellitus with diabetic chronic kidney disease; I12.9 Hypertensive chronic kidney disease with stage 1 through stage 4 chronic kidney disease, or unspecified chronic kidney disease; N17.9 Acute kidney failure, unspecified; Z79.84 Long term (current) use of oral hypoglycemic drugs
CPT/HCPCS: 36415; 80048; 85027; 85651; 86140; 96365

== ENCOUNTER 2019-12-03 14:54 | Day surgery (SDC) | payer BC ==
[2019-12-03] MEDS ORDERED: DEXTROSE 5%-WATER 100 ML IVPB ONE (14:57)
[2019-12-03] MEDS ORDERED: CEFTRIAXONE 2 GM in DEXTROSE 5%-WATER 100 ML IVPB ONE (15:00)
--- OUTSIDE RECORDS SUMMARY | 2019-12-03 15:11 | XMS ---
:1960 [facility] Support Name Relationship Address Phone UE Unavailable Unavailable [place] [address] [place] [address] Re-disclosure Warning The records that you are [...] is protected by Article 27-F of the [facility] Public Health law. If you continue you may haveaccess to information: Regarding HIV / AIDS; Provided by facilities licensed or operated by the [facility] Office of Mental Health; or Provided by the [facility] Office for People With Developmental Disabilities. If such information is present, then the following [facility] mandated warning applies: This information [...] Zuniga Inf ormation type zuniga BC EPO [id number] SP [id number] BC EPO [id number] SP [id number] 04 BLUE CROSS 1 [id number] [facility] EMPIR Results ID Date Data Source [id number] 11/25/2019 01:25:00 PM EDT [facility] Name Value Range Interpretation Description Data Sup porting Code Source(s) Document(s ) 2018 Novel [facility] Coronavirus RNA Interpretation Unspecified Specimen Qualitative ELHAM Probe Detection This lab was ordered by [place] [address] and reported by [facility]. ID Date Data Source [id number] 11/18/2019 10:00:00 AM EDT [facility] Name Value Range Interpretation Description Data Sup porting Code Source(s) Document(s ) 2019 Novel [facility] Coronavirus RNA Interpretation Unspecified Specimen Qualitative ELHAM Probe Detection This lab was ordered by [place] [address] and reported by [facility]. ID Date Data Source [id number] 10/27/2019 12:50:00 PM EDT [facility] Name Value Range Interpretation Description Data Sup porting Code Source(s) Document(s ) SARS [facility] coronavirus 2 RNA This lab was ordered by [facility] and reported by [facility]. Procedure
[2019-12-03 15:20] VITALS: TEMP 98.9
[2019-12-03 15:34] VITALS: BP 130/66; PULSE 63
== END 2019-12-03 15:51 | disposition home or self-care (01) ==
LOC: J7W 14:54 → JINFUSION 14:54
PROVIDERS: ATTEND Internal Medicine Infectious Disease
DX: E13.69 Other specified diabetes mellitus with other specified complication (principal); M86.8X7 Other osteomyelitis, ankle and foot; E13.22 Other specified diabetes mellitus with diabetic chronic kidney disease; I12.9 Hypertensive chronic kidney disease with stage 1 through stage 4 chronic kidney disease, or unspecified chronic kidney disease; N17.9 Acute kidney failure, unspecified; Z79.84 Long term (current) use of oral hypoglycemic drugs
CPT/HCPCS: 96365

== ENCOUNTER 2019-12-04 06:42 | Day surgery (SDC) | payer BC ==
[2019-12-04] MEDS ORDERED: CEFTRIAXONE 2 GM in DEXTROSE 5%-WATER 100 ML IVPB ONE (13:30)
[2019-12-04] MEDS ORDERED: DEXTROSE 5%-WATER 100 ML IVPB ONE (14:46)
[2019-12-04 16:12] VITALS: BP 129/79; PULSE 63; TEMP 97.9
== END 2019-12-04 16:00 | disposition home or self-care (01) ==
LOC: JINFUSION 06:42 → J7W 14:37 → JINFUSION 16:00
PROVIDERS: ATTEND Internal Medicine Infectious Disease
DX: E13.69 Other specified diabetes mellitus with other specified complication (principal); M86.8X7 Other osteomyelitis, ankle and foot; E13.22 Other specified diabetes mellitus with diabetic chronic kidney disease; I12.9 Hypertensive chronic kidney disease with stage 1 through stage 4 chronic kidney disease, or unspecified chronic kidney disease; N17.9 Acute kidney failure, unspecified; Z79.84 Long term (current) use of oral hypoglycemic drugs
CPT/HCPCS: 11721; 96365; 97597

== ENCOUNTER 2019-12-05 14:35 | Day surgery (SDC) | payer BC ==
--- OUTSIDE RECORDS SUMMARY | 2019-12-05 14:42 | XMS ---
:1960 [facility] Name Relationship Address Phone UE Unavailable Unavailable [place] [address] [place] [address] Re-disclosure Warning The records that you are [...] is protected by Article 27-F of the [facility] Public Health law. If you continue you may haveaccess to information: Regarding HIV / AIDS; Provided by facilities licensed or operated by the [facility] Office of Mental Health; or Provided by the [facility] Office for People With Developmental Disabilities. If such information is present, then the following [facility] mandated warning applies: This information has [...] Zuniga Inf ormation type zuniga BC EPO [id number] SP [id number] BC EPO [id number] SP [id number] 04 BLUE CROSS 1 [id number] 225 AND BLUE 5 [facility] EMPIR Results ID Date Data Source [id number] 12/02/2019 01:20:00 PM EDT [facility] Name Value Range Interpretation Description Data Sup porting Code Source(s) Document(s ) 2018 Novel [facility] Coronavirus RNA Interpretation Unspecified Specimen Qualitative ELHAM Probe Detection This lab was ordered by [place] [address] and reported by [facility]. ID Date Data Source [id number] 11/25/2019 01:25:00 PM EDT [facility] Name Value Range Interpretation Description Data Sup porting Code Source(s) Document(s ) 2019 Novel [facility] Coronavirus RNA Interpretation Unspecified Specimen Qualitative ELHAM Probe Detection This lab was ordered by [place] [address] and reported by [facility]. ID Date Data Source [id number] 11/18/2019 10:00:00 AM EDT [facility] Name Value Range Interpretation Description Data Sup porting Code Source(s) Document(s ) 2018 Novel [facility] Coronavirus RNA Interpretation Unspecified Specimen Qualitative ELHAM Probe Detection This lab was ordered by [place] [address] and reported by [facility]. ID Date Data Source [id number] 10/27/2019 12:50:00 PM EDT [facility] Name Value Range Interpretation Description Data Sup porting Code Source(s) Document(s ) SARS [facility] coronavirus 2 RNA This lab was ordered by [facility] and reported by [facility]. Procedure
[2019-12-05] MEDS ORDERED: DEXTROSE 5%-WATER 100 ML IVPB ONE (14:52)
[2019-12-05 15:26] VITALS: BP 104/66; PULSE 66; TEMP 98.8
== END 2019-12-05 15:33 | disposition home or self-care (01) ==
LOC: JINFUSION 14:35 → J7W 14:37 → JINFUSION 15:33
PROVIDERS: ATTEND Internal Medicine Infectious Disease
DX: E13.69 Other specified diabetes mellitus with other specified complication (principal); M86.8X7 Other osteomyelitis, ankle and foot; E13.22 Other specified diabetes mellitus with diabetic chronic kidney disease; I12.9 Hypertensive chronic kidney disease with stage 1 through stage 4 chronic kidney disease, or unspecified chronic kidney disease; N17.9 Acute kidney failure, unspecified; Z79.84 Long term (current) use of oral hypoglycemic drugs
CPT/HCPCS: 96365

== ENCOUNTER 2019-12-06 14:52 | Day surgery (SDC) | payer BC ==
--- OUTSIDE RECORDS SUMMARY | 2019-12-06 14:56 | XMS ---
:1960 [facility] Support Name Relationship Address Phone UE Unavailable Unavailable [place] [address] [address] [address] Re-disclosure Warning The records that you are [...] of the [facility] Public Health law. If you continue you may haveaccess to information: Regarding HIV / AIDS; Provided by facilities licensed or operated by the [facility] Office of Mental Health; or Provided by the [facility] Office for People With Developmental Disabilities. If such information is present, then the following [facility] mandated warning applies: This information has been [...] Zuniga Inf ormation type zuniga BC EPO [id number] SP [id number] 04 BC EPO [id number] SP [id number] 04 BLUE CROSS 1 [id number] 225 AND BLUE 5 [facility] EMPIR Results ID Date Data Source [id number] 12/02/2019 01:20:00 PM EDT [facility] Name Value Range Interpretation Description Data Sup porting Code Source(s) Document(s ) 2018 Novel [facility] Coronavirus RNA Interpretation Unspecified Specimen Qualitative ELHAM Probe Detection This lab was ordered by [place] [address] and reported by [facility]. ID Date Data Source [id number] 11/25/2019 01:25:00 PM EDT [facility] Name Value Range Interpretation Description Data Sup porting Code Source(s) Document(s ) 2019 Novel [facility] Coronavirus RNA Interpretation Unspecified Specimen Qualitative ELHAM Probe Detection This lab was ordered by [place] [address] and reported by [facility]. ID Date Data Source [id number] 11/18/2019 10:00:00 AM EDT [facility] Name Value Range Interpretation Description Data Sup porting Code Source(s) Document(s ) 2018 Novel [facility] Coronavirus RNA Interpretation Unspecified Specimen Qualitative ELHAM Probe Detection This lab was ordered by [place] [address] and reported by [facility]. ID Date Data Source [id number] 10/27/2019 12:50:00 PM EDT [facility] Name Value Range Interpretation Description Data Sup porting Code Source(s) Document(s ) SARS [facility] coronavirus 2 RNA This lab was ordered by [facility] and reported by [facility]. Procedure
[2019-12-06] MEDS ORDERED: CEFTRIAXONE 2 GM in DEXTROSE 5%-WATER 100 ML IVPB ONE (15:15)
[2019-12-06] MEDS ORDERED: DEXTROSE 5%-WATER 100 ML IVPB ONE (15:20)
[2019-12-06 15:55] VITALS: BP 130/61; PULSE 67; TEMP 98.6
== END 2019-12-06 16:00 | disposition home or self-care (01) ==
LOC: JINFUSION 14:52 → J7W 14:53 → JINFUSION 16:00
PROVIDERS: ATTEND Internal Medicine Infectious Disease
DX: E13.69 Other specified diabetes mellitus with other specified complication (principal); M86.8X7 Other osteomyelitis, ankle and foot; E13.22 Other specified diabetes mellitus with diabetic chronic kidney disease; I12.9 Hypertensive chronic kidney disease with stage 1 through stage 4 chronic kidney disease, or unspecified chronic kidney disease; N17.9 Acute kidney failure, unspecified; Z79.84 Long term (current) use of oral hypoglycemic drugs
CPT/HCPCS: 96365

== ENCOUNTER 2019-12-07 10:40 | Day surgery (SDC) | payer BC ==
--- OUTSIDE RECORDS SUMMARY | 2019-12-07 10:45 | XMS ---
:1960 [facility] Name Relationship Address Phone UE Unavailable Unavailable [place] [address] [place] [address] Re-disclosure Warning The records that you are [...] is protected by Article 27-F of the [facility] Public Health law. If you continue you may haveaccess to information: Regarding HIV / AIDS; Provided by facilities licensed or operated by the [facility] Office of Mental Health; or Provided by the [facility] Office for People With Developmental Disabilities. If such information is present, then the following [facility] mandated warning applies: This information [...] Zuniga Inf ormation type zuniga BC EPO [id number] SP [id number] 04 BC EPO [id number] SP [id number] 04 BLUE CROSS 1 [id number] 225 AND BLUE 5 [facility] EMPIR Results ID Date Data Source [id number] 12/02/2019 01:20:00 PM EDT [facility] Name Value Range Interpretation Description Data Sup porting Code Source(s) Document(s ) 2018 Novel [facility] Coronavirus RNA Interpretation Unspecified Specimen Qualitative ELHAM Probe Detection This lab was ordered by [place] [address] and reported by [facility]. ID Date Data Source [id number] 11/25/2019 01:25:00 PM EDT [facility] Name Value Range Interpretation Description Data Sup porting Code Source(s) Document(s ) 2019 Novel [facility] Coronavirus RNA Interpretation Unspecified Specimen Qualitative ELHAM Probe Detection This lab was ordered by [place] [address] and reported by [facility]. ID Date Data Source [id number] 11/18/2019 10:00:00 AM EDT [facility] Name Value Range Interpretation Description Data Sup porting Code Source(s) Document(s ) 2018 Novel [facility] Coronavirus RNA Interpretation Unspecified Specimen Qualitative ELHAM Probe Detection This lab was ordered by [place] [address] and reported by [facility]. ID Date Data Source [id number] 10/27/2019 12:50:00 PM EDT [facility] Name Value Range Interpretation Description Data Sup porting Code Source(s) Document(s ) SARS [facility] coronavirus 2 RNA This lab was ordered by [facility] and reported by [facility]. Procedure
[2019-12-07] MEDS ORDERED: DEXTROSE 5%-WATER 100 ML IVPB ONE (10:52)
[2019-12-07] MEDS ORDERED: CEFTRIAXONE 2 GM in DEXTROSE 5%-WATER 100 ML IVPB ONE (11:00)
[2019-12-07 12:38] VITALS: BP 129/77; PULSE 69; TEMP 98.9
== END 2019-12-07 12:08 | disposition home or self-care (01) ==
LOC: JINFUSION 10:40 → J7W 10:40 → JINFUSION 12:08
PROVIDERS: ATTEND Internal Medicine Infectious Disease
DX: E13.69 Other specified diabetes mellitus with other specified complication (principal); M86.8X7 Other osteomyelitis, ankle and foot; E13.22 Other specified diabetes mellitus with diabetic chronic kidney disease; I12.9 Hypertensive chronic kidney disease with stage 1 through stage 4 chronic kidney disease, or unspecified chronic kidney disease; N17.9 Acute kidney failure, unspecified; Z79.84 Long term (current) use of oral hypoglycemic drugs
CPT/HCPCS: 96365

== ENCOUNTER 2019-12-08 14:58 | Day surgery (SDC) | payer BC ==
--- OUTSIDE RECORDS SUMMARY | 2019-12-08 15:02 | XMS ---
:1960 Author [facility] Support Name Relationship Address Phone UE Unavailable Unavailable Unavailable [place] [address] [address]LLERMO [place] [address] Re-disclosure Warning The records that you are [...] is protected by Article 27-F of the [facility] Public Health law. If you continue you may haveaccess to information: Regarding HIV / AIDS; Provided by facilities licensed or operated by the [facility] Office of Mental Health; or Provided by the [facility] Office for People With Developmental Disabilities. If such information is present, then the following [facility] mandated warning applies: This information has [...] Zuniga Inf ormation type zuniga BC EPO [id number] SP [id number] 04 BC EPO [id number] SP [id number] 04 BLUE CROSS 1 [id number] 225 AND BLUE 5 [facility] EMPIR Results ID Date Data Source [id number] 12/02/2019 01:20:00 PM EDT [facility] Name Value Range Interpretation Description Data Sup porting Code Source(s) Document(s ) 2018 Novel [facility] Coronavirus RNA Interpretation Unspecified Specimen Qualitative ELHAM Probe Detection This lab was ordered by [place] [address] and reported by [facility]. ID Date Data Source [id number] 11/25/2019 01:25:00 PM EDT [facility] Name Value Range Interpretation Description Data Sup porting Code Source(s) Document(s ) 2019 Novel [facility] Coronavirus RNA Interpretation Unspecified Specimen Qualitative ELHAM Probe Detection This lab was ordered by [place] [address] and reported by [facility]. ID Date Data Source [id number] 11/18/2019 10:00:00 AM EDT [facility] Name Value Range Interpretation Description Data Sup porting Code Source(s) Document(s ) 2018 Novel [facility] Coronavirus RNA Interpretation Unspecified Specimen Qualitative ELHAM Probe Detection This lab was ordered by [place] [address] and reported by [facility]. ID Date Data Source [id number] 10/27/2019 12:50:00 PM EDT [facility] Name Value Range Interpretation Description Data Sup porting Code Source(s) Document(s ) SARS [facility] coronavirus 2 RNA This lab was ordered by [facility] and reported by [facility]. Procedure
[2019-12-08 16:07] VITALS: BP 121/76; PULSE 58; TEMP 97.5
== END 2019-12-08 16:27 | disposition home or self-care (01) ==
LOC: JINFUSION 14:58 → J7W 14:59 → JINFUSION 16:27
PROVIDERS: ATTEND Internal Medicine Infectious Disease
DX: E13.69 Other specified diabetes mellitus with other specified complication (principal); M86.8X7 Other osteomyelitis, ankle and foot; E13.22 Other specified diabetes mellitus with diabetic chronic kidney disease; I12.9 Hypertensive chronic kidney disease with stage 1 through stage 4 chronic kidney disease, or unspecified chronic kidney disease; N17.9 Acute kidney failure, unspecified; Z79.84 Long term (current) use of oral hypoglycemic drugs
CPT/HCPCS: 96365

== ENCOUNTER 2019-12-09 06:08 | Day surgery (SDC) | payer BC ==
--- OUTSIDE RECORDS SUMMARY | 2019-12-09 06:11 | XMS ---
:1960 [facility] Name Relationship Address Phone UE Unavailable Unavailable Unavailable [place] [address] [address]LLERMO [place] [address] Re-disclosure Warning The records that you are [...] is protected by Article 27-F of the [facility] Public Health law. If you continue you may haveaccess to information: Regarding HIV / AIDS; Provided by facilities licensed or operated by the [facility] Office of Mental Health; or Provided by the [facility] Office for People With Developmental Disabilities. If such information is present, then the following [facility] mandated warning applies: This information has [...] Zuniga Inf ormation type zuniga BC EPO [id number] SP [id number] BC EPO [id number] SP [id number] BLUE CROSS 1 [id number] 225 AND BLUE 5 [facility] EMPIR Results ID Date Data Source [id number] 12/02/2019 01:20:00 PM EDT [facility] Name Value Range Interpretation Description Data Sup porting Code Source(s) Document(s ) 2018 Novel [facility] Coronavirus RNA Interpretation Unspecified Specimen Qualitative ELHAM Probe Detection This lab was ordered by [place] [address] and reported by [facility]. ID Date Data Source [id number] 11/25/2019 01:25:00 PM EDT [facility] Name Value Range Interpretation Description Data Sup porting Code Source(s) Document(s ) 2019 Novel [facility] Coronavirus RNA Interpretation Unspecified Specimen Qualitative ELHAM Probe Detection This lab was ordered by [place] [address] and reported by [facility]. ID Date Data Source [id number] 11/18/2019 10:00:00 AM EDT [facility] Name Value Range Interpretation Description Data Sup porting Code Source(s) Document(s ) 2018 Novel [facility] Coronavirus RNA Interpretation Unspecified Specimen Qualitative ELHAM Probe Detection This lab was ordered by [place] [address] and reported by [facility]. ID Date Data Source [id number] 10/27/2019 12:50:00 PM EDT [facility] Name Value Range Interpretation Description Data Sup porting Code Source(s) Document(s ) SARS [facility] coronavirus 2 RNA This lab was ordered by [facility] and reported by [facility]. Procedure
[2019-12-09] MEDS ORDERED: CEFTRIAXONE 2 GM in DEXTROSE 5%-WATER 100 ML IVPB ONE (13:45)
[2019-12-09] MEDS ORDERED: DEXTROSE 5%-WATER 100 ML IVPB ONE (14:11)
[2019-12-09 14:32] LABS: HEMOGLOBIN 15.3 GM/dL (11.7-16.9); MCH 30.8 pg (25.7-33.7); MCHC 34.8 g/dl (32.0-35.9); MEAN CELL VOLUME 88.4 fl (80-96); MEAN PLT VOLUME 8.7 fl (7.5-11.1); PLATELET COUNT 159 K/MM3 (134-434); RBC 4.98 M/mm3 (4.00-5.60); RDW 13.2 % (11.9-15.9); WHITE BLOOD COUNT 9.2 K/mm3 (4.0-10.0)
[2019-12-09 14:59] LABS: ANION GAP 7 MMOL/L (8-16); CALCIUM 9.5 mg/dL (8.5-10.1); CHLORIDE 107 mmol/L (98-107); CO2 26 mmol/L (21-32); CREATININE 1.3 mg/dL (0.55-1.3); GLUCOSE,RANDOM 103 mg/dL (74-106); POTASSIUM 4.1 mmol/L (3.5-5.1); SODIUM 141 mmol/L (136-145)
[2019-12-09 15:15] LABS: ERYTHROCYTE SEDIMENTATION RATE 2 mm/hr (0-20)
[2019-12-09 18:04] VITALS: BP 130/84; PULSE 57
[2019-12-09 18:06] VITALS: TEMP 99
== END 2019-12-09 15:00 | disposition home or self-care (01) ==
LOC: JINFUSION 06:08 → J7W 14:00 → JINFUSION 15:00
PROVIDERS: ATTEND Internal Medicine Infectious Disease
DX: E13.69 Other specified diabetes mellitus with other specified complication (principal); M86.8X7 Other osteomyelitis, ankle and foot; E13.22 Other specified diabetes mellitus with diabetic chronic kidney disease; I12.9 Hypertensive chronic kidney disease with stage 1 through stage 4 chronic kidney disease, or unspecified chronic kidney disease; N17.9 Acute kidney failure, unspecified; Z79.84 Long term (current) use of oral hypoglycemic drugs
CPT/HCPCS: 36415; 80048; 85027; 85651; 86140; 96365

== ENCOUNTER 2019-12-10 05:46 | Day surgery (SDC) | payer BC ==
--- OUTSIDE RECORDS SUMMARY | 2019-12-10 05:50 | XMS ---
:1960 [facility] Support Name Relationship Address Phone UE Unavailable Unavailable Unavailable [place] [address] [address]LLERMO [place] [address] Re-disclosure Warning The records that you are [...] is protected by Article 27-F of the [facility] Public Health law. If you continue you may haveaccess to information: Regarding HIV / AIDS; Provided by facilities licensed or operated by the [facility] Office of Mental Health; or Provided by the [facility] Office for People With Developmental Disabilities. If such information is present, then the following [facility] mandated warning applies: This information [...] Zuniga Inf ormation type zuniga BC EPO [id number] SP [id number] 04 BC EPO [id number] SP [id number] 04 BLUE CROSS 1 [id number] 225 AND BLUE 5 [facility] EMPIR Results ID Date Data Source [id number] 12/02/2019 01:20:00 PM EDT [facility] Name Value Range Interpretation Description Data Sup porting Code Source(s) Document(s ) 2018 Novel [facility] Coronavirus RNA Interpretation Unspecified Specimen Qualitative ELHAM Probe Detection This lab was ordered by [place] [address] and reported by [facility]. ID Date Data Source [id number] 11/25/2019 01:25:00 PM EDT [facility] Name Value Range Interpretation Description Data Sup porting Code Source(s) Document(s ) 2019 Novel [facility] Coronavirus RNA Interpretation Unspecified Specimen Qualitative ELHAM Probe Detection This lab was ordered by [place] [address] and reported by [facility]. ID Date Data Source [id number] 11/18/2019 10:00:00 AM EDT [facility] Name Value Range Interpretation Description Data Sup porting Code Source(s) Document(s ) 2018 Novel [facility] Coronavirus RNA Interpretation Unspecified Specimen Qualitative ELHAM Probe Detection This lab was ordered by [place] [address] and reported by [facility]. ID Date Data Source [id number] 10/27/2019 12:50:00 PM EDT [facility] Name Value Range Interpretation Description Data Sup porting Code Source(s) Document(s ) SARS [facility] coronavirus 2 RNA This lab was ordered by [facility] and reported by [facility]. Procedure
[2019-12-10] MEDS ORDERED: CEFTRIAXONE 2 GM in DEXTROSE 5%-WATER 100 ML IVPB ONE (14:15)
[2019-12-10] MEDS ORDERED: DEXTROSE 5%-WATER 100 ML IVPB ONE (15:01)
[2019-12-10 15:43] VITALS: TEMP 98.4
[2019-12-10 15:44] VITALS: BP 128/81; PULSE 55
== END 2019-12-10 15:44 | disposition home or self-care (01) ==
LOC: JINFUSION 05:46 → J7W 14:51 → JINFUSION 15:44
PROVIDERS: ATTEND Internal Medicine Infectious Disease
DX: E13.69 Other specified diabetes mellitus with other specified complication (principal); M86.8X7 Other osteomyelitis, ankle and foot; E13.22 Other specified diabetes mellitus with diabetic chronic kidney disease; I12.9 Hypertensive chronic kidney disease with stage 1 through stage 4 chronic kidney disease, or unspecified chronic kidney disease; N17.9 Acute kidney failure, unspecified; Z79.84 Long term (current) use of oral hypoglycemic drugs
CPT/HCPCS: 96365

== ENCOUNTER 2024-05-27 07:17 | Inpatient (IN) | payer OTHER ==
[2024-05-27 07:23] VITALS: BMI 28.3
[2024-05-27] MEDS ORDERED: PIPERACILLIN/TAZOB 3.375 GM 3.375 GM/50 ML BAG IVPB ONE (08:43)
[2024-05-27] MEDS: PIPERACILLIN/TAZOB 3.375 GM 3.375 GM in DEXTROSE 5%-WATER - 50 ML IVPB ONE (08:44)
[2024-05-27] MEDS: VANCOMYCIN 1,000 MG in DEXTROSE 5%-WATER - 250 ML IVPB ONE (08:51)
[2024-05-27 08:52] LABS: HEMATOCRIT 38.4 % (40.1-51.0); HEMOGLOBIN 12.8 g/dL (13.7-17.5); MCHC 33.3 g/dl (32.3-36.5); MEAN CELL VOLUME 86.5 fl (79.0-92.2); MEAN PLT VOLUME 9.2 fl (9.4-12.4); PLATELET COUNT 238 x10^3/uL (163-337); RDW 13.4 % (12.2-16.4)
[2024-05-27] MEDS ORDERED: VANCOMYCIN 1 GM PREMIX (F) 1 GM/200 ML BAG ONE (08:52)
[2024-05-27 09:18] LABS: POTASSIUM 4.8 mmol/L (3.5-5.1)
[2024-05-27 09:20] LABS: ALBUMIN 3.5 g/dl (3.4-5.0); CALCIUM 8.9 mg/dL (8.5-10.1)
[2024-05-27 09:21] LABS: BLOOD UREA NITROGEN 21.4 mg/dL (7-18)
[2024-05-27 09:24] LABS: CREATININE 1.2 mg/dL (0.55-1.3)
[2024-05-27 09:25] LABS: BILIRUBIN,TOTAL 1.2 mg/dL (0.2-1)
[2024-05-27 09:33] LABS: ERYTHROCYTE SEDIMENTATION RATE 28 mm/hr (0-20)
[2024-05-27 10:00] LABS: MONOCYTE # 1.64 x10^3/uL (0.30-0.82)
[2024-05-27] MEDS: INSULIN ASPART SLIDING SCALE (NOVOLOG) 1 VIAL SQ SCH (12:01)
[2024-05-27] MEDS ORDERED: SERTRALINE HCL 50 MG TABLET (FP) ONE (12:02)
[2024-05-27] MEDS: SERTRALINE HCL 50 MG TABLET (FP) PO SCH (12:12)
[2024-05-27] MEDS: SODIUM CHLORIDE 1,000 ML IV SCH (12:23)
[2024-05-27] MEDS: ACETAMINOPHEN 1000 MG/100 ML BAG IVPB PRN (12:27)
[2024-05-27] MEDS ORDERED: ACETAMINOPHEN INJECTION 100 ML ONE (12:32)
[2024-05-27] MEDS: KETOROLAC TROMETHAMINE 15 MG/ML VIAL IVPUSH PRN (18:58)
[2024-05-27] MEDS: PIPERACILLIN/TAZOB 3.375 GM 50 ML IVPB SCH (19:42)
[2024-05-27] MEDS ORDERED: VANCOMYCIN HCL 1,500 MG in DEXTROSE 5%-WATER - 250 ML IVPB SCH (21:00)
[2024-05-27] MEDS: ATORVASTATIN CA 20 MG TABLET (FP) PO SCH (21:31)
[2024-05-27] MEDS: VANCOMYCIN/WATER FOR INJ (PEG) 1 GM/200 ML BAG IVPB SCH (21:31)
[2024-05-28 07:48] LABS: HEMATOCRIT 36.3 % (40.1-51.0); HEMOGLOBIN 12.1 g/dL (13.7-17.5); MCHC 33.3 g/dl (32.3-36.5); MEAN CELL VOLUME 86.8 fl (79.0-92.2); MEAN PLT VOLUME 9.4 fl (9.4-12.4); PLATELET COUNT 219 x10^3/uL (163-337); RDW 13.5 % (12.2-16.4)
[2024-05-28 08:02] LABS: POTASSIUM 3.8 mmol/L (3.5-5.1)
[2024-05-28 08:08] LABS: CALCIUM 8.4 mg/dL (8.5-10.1)
[2024-05-28 08:09] LABS: BLOOD UREA NITROGEN 17.1 mg/dL (7-18); MAGNESIUM 1.8 mg/dL (1.8-2.4)
[2024-05-28 08:12] LABS: CREATININE 1.2 mg/dL (0.55-1.3)
[2024-05-28] MEDS: LOSARTAN POTASSIUM 50 MG TABLET PO SCH (10:51)
[2024-05-28] MEDS: PANTOPRAZOLE 20 MG TABLET PO SCH (10:51)
[2024-05-28] MEDS: NIFEdipine E.R. 90 MG TABLET PO SCH (10:51)
[2024-05-28] MEDS: CEFTRIAXONE 2 GM-D5W BAG 2 GM/50 ML BAG IVPB SCH (13:12)
[2024-05-28] MEDS: PIPERACILLIN/TAZOB 3.375 GM 3.375 GM in DEXTROSE 5%-WATER - 50 ML IVPB SCH (20:27)
[2024-05-28] MEDS: VANCOMYCIN 1,000 MG in DEXTROSE 5%-WATER - 250 ML IVPB SCH (20:28)
[2024-05-28] MEDS: VANCOMYCIN 1 GM PREMIX (F) 1 GM/200 ML BAG IVPB SCH (20:28)
[2024-05-29 08:12] LABS: ABSOLUTE IMMATURE GRANULOCYTES 0.02 x10^3/uL (0.0-0.031); BASOPHILS # 0.05 x10^3/uL (0.01-0.08); EOSINOPHIL % 4.7 % (0.8-7.0); HEMATOCRIT 36.1 % (40.1-51.0); HEMOGLOBIN 12.1 g/dL (13.7-17.5); MCHC 33.5 g/dl (32.3-36.5); MEAN CELL VOLUME 86.6 fl (79.0-92.2); MEAN PLT VOLUME 9.6 fl (9.4-12.4); MONOCYTE # 0.91 x10^3/uL (0.30-0.82); MONOCYTE % 10.8 % (5.3-12.2); PLATELET COUNT 208 x10^3/uL (163-337); RDW 13.4 % (12.2-16.4)
[2024-05-29 08:30] LABS: ALBUMIN 3.1 g/dl (3.4-5.0); BLOOD UREA NITROGEN 14.4 mg/dL (7-18); CALCIUM 8.9 mg/dL (8.5-10.1); MAGNESIUM 2.1 mg/dL (1.8-2.4)
[2024-05-29 08:35] LABS: BILIRUBIN,TOTAL 1.1 mg/dL (0.2-1); TOT PROT 6.3 g/dl (6.4-8.2)
[2024-05-29 14:56] VITALS: RESP 18
[2024-05-30 07:25] LABS: ABSOLUTE IMMATURE GRANULOCYTES 0.02 x10^3/uL (0.0-0.031); BASOPHILS # 0.05 x10^3/uL (0.01-0.08); EOSINOPHILS # 0.51 x10^3/uL (0.04-0.54); HEMATOCRIT 37.7 % (40.1-51.0); HEMOGLOBIN 12.4 g/dL (13.7-17.5); MCHC 32.9 g/dl (32.3-36.5); MEAN CELL VOLUME 86.7 fl (79.0-92.2); MEAN PLT VOLUME 9.4 fl (9.4-12.4); MONOCYTE # 0.97 x10^3/uL (0.30-0.82); MONOCYTE % 11.5 % (5.3-12.2); PLATELET COUNT 244 x10^3/uL (163-337); RDW 13.3 % (12.2-16.4)
[2024-05-30 07:48] LABS: ALBUMIN 3.1 g/dl (3.4-5.0); BLOOD UREA NITROGEN 17.7 mg/dL (7-18); MAGNESIUM 2.3 mg/dL (1.8-2.4)
[2024-05-30 07:51] LABS: CREATININE 1.2 mg/dL (0.55-1.3)
[2024-05-30 07:53] LABS: BILIRUBIN,TOTAL 0.6 mg/dL (0.2-1); TOT PROT 6.2 g/dl (6.4-8.2)
[2024-05-30 12:54] VITALS: BP 108/68; PULSE 65; TEMP 97.9
== END 2024-05-30 14:35 | disposition home or self-care (01) | DRG 638 ==
LOC: JER 07:17 → JERBED 09:38 → J7W 13:25 → OBSVTOIN 05-28 15:04 → J7W 05-28 21:54
PROVIDERS: ADMIT Internal Medicine
DX: E11.69 Type 2 diabetes mellitus with other specified complication (principal); L03.115 Cellulitis of right lower limb; L97.518 Non-pressure chronic ulcer of other part of right foot with other specified severity; M86.8X7 Other osteomyelitis, ankle and foot; E11.621 Type 2 diabetes mellitus with foot ulcer; I10 Essential (primary) hypertension; E78.5 Hyperlipidemia, unspecified; E11.42 Type 2 diabetes mellitus with diabetic polyneuropathy; B95.2 Enterococcus as the cause of diseases classified elsewhere; B95.7 Other staphylococcus as the cause of diseases classified elsewhere; B95.1 Streptococcus, group B, as the cause of diseases classified elsewhere; K21.9 Gastro-esophageal reflux disease without esophagitis; F41.8 Other specified anxiety disorders
CPT/HCPCS: 36415; 73630-TC-RT-FY; 80048; 80053; 82962; 83036; 83735; 84100; 85025; 85027; 85651; 86140; 87040; 87070; 87077; 87186; 87205; 93005; 93010; 93925-TC; 94660; 99285-25; G0378; J0131

== ENCOUNTER 2024-06-20 12:45 | Day surgery (SDC) | payer OTHER ==
[2024-06-20] MEDS: DALBAVANCIN HCL 1,500 MG in DEXTROSE 5%-WATER - 500 ML IVPB ONE (13:24)
[2024-06-20 14:50] VITALS: BP 132/72; PULSE 70; RESP 16; TEMP 98.1
== END 2024-06-20 14:10 | disposition home or self-care (01) ==
LOC: FINFUSION 12:45 → FM/S 12:46 → FINFUSION 14:10
PROVIDERS: ATTEND Internal Medicine Infectious Disease
DX: M86.9 Osteomyelitis, unspecified (principal)
CPT/HCPCS: 96365; J0875